=== PATIENT | female | born 1930 | race Two or more races ===

== ENCOUNTER 2019-01-29 11:41 | Inpatient (IN) | payer MEDICARE, MEDICAID ==
[~2019-01-29] VITALS: Ht 157.5 cm; Wt 53.5 kg
--- NOTE | 2019-01-29 11:45 | NUR ---
ED Nurse Note: Patient brought in by ambulance from [facility] with low sodium level of 123 and also frequent urinations. patient is alert awake x2 ambulatory with assistance, placed patient on hospital gown, bedside commode provided for the patient. pt. was BIBA from [facility] with low sodium level 123 and friquient urinations
[2019-01-29] MEDS ORDERED: ACETAMINOPHEN325 M1 ORAL (11:51)
[2019-01-29] MEDS ORDERED: ATORVASTATIN CA20 MG ORAL (11:51)
[2019-01-29] MEDS ORDERED: PROTONIX40 MG ORAL (11:51)
[2019-01-29] MEDS ORDERED: DIOVAN80 MG ORAL (11:51)
[2019-01-29] MEDS ORDERED: COLACE100 MG ORAL (11:51)
[2019-01-29] MEDS ORDERED: NAPROXEN500 M2 ORAL (11:51)
[2019-01-29] MEDS ORDERED: METOPROLOL TART25 MG ORAL (11:51)
[2019-01-29] MEDS ORDERED: ASPIRIN81 MG ORAL (11:51)
[2019-01-29 12:12] VITALS: BP 125/64
[2019-01-29 12:20] LABS: APPEARANCE,URINE CLEAR; BILIRUBIN, URINE NEGATIVE (NEGATIVE); GLUCOSE, URINE (UA) NEGATIVE (NEGATIVE); KETONES,URINE NEGATIVE (NEGATIVE); LEUKOCYTE ESTERASE ,URINE 2+ (NEGATIVE); NITRITE,URINE NEGATIVE (NEGATIVE); PH,URINE 6 (4.5-8.0); PROTEIN,URINE NEGATIVE (NEGATIVE); UROBILINOGEN,URINE NORMAL MG/DL (0.0-1.0)
[2019-01-29 12:21] LABS: COLOR,URINE YELLOW
[2019-01-29 12:31] LABS: ANION GAP 9 mmol/L (5-15); BLOOD UREA NITROGEN 21 mg/dL (7-18); CALCIUM 8.4 MG/DL (8.5-10.1); CARBON DIOXIDE 23 MMOL/L (21-32); CHLORIDE 89 MMOL/L (98-107); CREATININE 0.7 MG/DL (0.55-1.30); POTASSIUM 4.2 MMOL/L (3.5-5.1); SODIUM 121 MMOL/L (136-145)
[2019-01-29 12:37] LABS: BASOPHILS % (AUTO) 1.6 % (0.0-2.0); EOSINOPHILS % (AUTO) 1.7 % (0.0-3.0); HEMATOCRIT 34.5 % (37.0-47.0); HEMOGLOBIN 12.8 G/DL (12.0-16.0); LYMPHOCYTES % (AUTO) 22.5 % (20.0-45.0); MEAN CORPUSCULAR VOLUME 89 FL (80-99); MONOCYTES % (AUTO) 10.7 % (1.0-10.0); NEUTROPHILS % (AUTO) 63.5 % (45.0-75.0); PLATELET COUNT 260 K/UL (150-450); RED BLOOD COUNT 3.89 M/UL (4.20-5.40); RED CELL DISTRIBUTION WIDTH 11.3 % (11.6-14.8); WHITE BLOOD COUNT 7.2 K/UL (4.8-10.8)
[2019-01-29 12:42] LABS: ALANINE AMINOTRANSFERASE 20 U/L (12-78); ALBUMIN 3.2 G/DL (3.4-5.0); ALBUMIN/GLOBULIN RATIO 0.9 (1.0-2.7); ALKALINE PHOSPHATASE 92 U/L (46-116); ASPARTATE AMINO TRANSFERASE 25 U/L (15-37); BILIRUBIN,TOTAL 0.4 MG/DL (0.2-1.0)
--- NOTE | 2019-01-29 13:05 | Emergency Room Report ---
History of Present Illness General Chief Complaint: Abnormal Labs Source: EMS Present Illness HPI 88-year-old female presents ED for evaluation. Brought in by EMS from alf facility. Sent in for abnormal labs. Had reportedly low sodium. Also frequent urination. No reported fevers or chills. No nausea or vomiting. No diarrhea. No signs of distress upon arrival. No other aggravating relieving factors. Denies any other associated symptoms Allergies: Coded Allergies: PENICILLINS (Verified Allergy, Unknown, 01/29/19) Patient History Past Medical History: DM, GERD, dementia Past Surgical History: none Pertinent Family History: none Social History: Denies: smoking, alcohol use, drug use Now: No Immunizations: UTD Reviewed Nursing Documentation: PMH: Agreed; PSxH: Agreed Nursing Documentation-PMH Past Medical History: No History, Except For Hx Cardiac Problems: Yes - hyperlipidemia Hx Diabetes: Yes Hx Gastrointestinal Problems: Yes - gerd Hx Neurological Problems: Yes - nakul's Review of Systems All Other Systems: negative except mentioned in HPI Physical Exam Vital Signs Date Time Temp Pulse Resp B/P (MAP) Pulse Ox O2 Delivery O2 Flow Rate FiO2 01/29/19 11:40 73 16 136/74 (94) 96 Room Air 01/29/19 12:12 97.4 Sp02 EP Interpretation: reviewed, normal General Appearance: no apparent distress, alert, GCS 15, non-toxic Head: normocephalic, atraumatic Eyes: bilateral eye normal inspection, bilateral eye PERRL ENT: hearing grossly normal, normal pharynx, no angioedema, normal voice Neck: full range of motion, supple/symm/no masses Respiratory: chest non-tender, lungs clear, normal breath sounds, speaking full sentences Cardiovascular #1: regular rate, rhythm, no edema Cardiovascular #2: 2+ carotid (R), 2+ carotid (L), 2+ radial (R), 2+ radial (L) , 2+ dorsalis pedis (R), 2+ dorsalis pedis (L) Gastrointestinal: normal bowel sounds, non tender, soft, non-distended, no guarding, no rebound Rectal: deferred Genitourinary: normal inspection, no CVA tenderness Musculoskeletal: back normal, gait/station normal, normal range of motion, non- tender Neurologic: alert, oriented x3, responsive, motor strength/tone normal, sensory intact, speech normal Psychiatric: judgement/insight normal, memory normal, mood/affect normal, no suicidal/homicidal ideation Reflexes: 3+ bicep (R), 3+ bicep (L), 3+ tricep (R), 3+ tricep (L), 3+ knee (R) , 3+ knee (L) Lymphatic: no adenopathy Medical Decision Making Diagnostic Impression: Primary Impression: Hyponatremia Additional Impressions: UTI (urinary tract infection) Qualified Codes: N39.0 - Urinary tract infection, site not specified Alzheimer's dementia Qualified Codes: G30.9 - Alzheimer's disease, unspecified; F02.81 - Dementia in other diseases classified elsewhere with behavioral disturbance ER Course Hospital Course 88 yo F presents to ED for reported low sodium, frequent urinations Differential diagnoses include: Pneumonia, UTI, sepsis, dehydration, Clinical course Patient placed on stretcher. On equipment monitor phototypesetting with stable vitals. After initial history and physical, I ordered labs, IV fluids, EKG, chest x-ray, blood cultures, UA. Labs - Na 121, BUN/cr normal, no leukocytosis, hb/hct stable, lactic ok, UA + bacteria EKG - NSR, no acute ischemic changes interpreted by me CXR - no acute process given IVFs. given abx. Was pulling out her IV and getting combative with nursing. Given Haldol/Ativan. Case discussed with Dr Nuñez and they agreed to admit patient to their service for further care and support I feel this is a highly complex case requiring extensive working including EKG/ Rhythm strip, Xray/CT/US, Blood/urine lab work, repeat exams while in ED, and administration of strong opiates/narcotics for pain control, admission to hospital or close patient follow up. Diagnosis - hyponatremia, UTI, dementia Patient admitted to telemetry in serious condition Labs Test 01/29/19 11:58 01/29/19 12:00 Urine Color Yellow Urine Appearance Clear Urine pH 6 (4.5-8.0) Urine Specific [place] 1.015 (1.005-1.035) Urine Protein Negative (NEGATIVE) Urine Glucose (UA) Negative (NEGATIVE) Urine Ketones Negative (NEGATIVE) Urine Blood 4+ (NEGATIVE) Urine Nitrite Negative (NEGATIVE) Urine Bilirubin Negative (NEGATIVE) Urine Urobilinogen Normal MG/DL (0.0-1.0) Urine Leukocyte Esterase 2+ (NEGATIVE) White Blood Count 7.2 K/UL (4.8-10.8) Red Blood Count 3.89 M/UL (4.20-5.40) Hemoglobin 12.8 G/DL (12.0-16.0) Hematocrit 34.5 % (37.0-47.0) Mean Corpuscular Volume 89 FL (80-99) Mean Corpuscular Hemoglobin 32.8 PG (27.0-31.0) Mean Corpuscular Hemoglobin Concent 37.0 G/DL (32.0-36.0) Red Cell Distribution Width 11.3 % (11.6-14.8) Platelet Count 260 K/UL (150-450) Mean Platelet Volume 5.9 FL (6.5-10.1) Neutrophils (%) (Auto) 63.5 % (45.0-75.0) Lymphocytes (%) (Auto) 22.5 % (20.0-45.0) Monocytes (%) (Auto) 10.7 % (1.0-10.0) Eosinophils (%) (Auto) 1.7 % (0.0-3.0) Basophils (%) (Auto) 1.6 % (0.0-2.0) Sodium Level 121 MMOL/L (136-145) Potassium Level 4.2 MMOL/L (3.5-5.1) Chloride Level 89 MMOL/L (98-107) Carbon Dioxide Level 23 MMOL/L (21-32) Anion Gap 9 mmol/L (5-15) Blood Urea Nitrogen 21 mg/dL (7-18) Creatinine 0.7 MG/DL (0.55-1.30) Estimat Glomerular Filtration Rate mL/min (>60) Glucose Level 148 MG/DL (74-106) Lactic Acid Level 1.10 mmol/L (0.4-2.0) Calcium Level 8.4 MG/DL (8.5-10.1) Total Bilirubin 0.4 MG/DL (0.2-1.0) Aspartate Amino Transf (AST/SGOT) 25 U/L (15-37) Alanine Aminotransferase (ALT/SGPT) 20 U/L (12-78) Alkaline Phosphatase 92 U/L (46-116) Pro-B-Type Natriuretic Peptide 787 pg/mL (0-125) Total Protein 6.6 G/DL (6.4-8.2) Albumin 3.2 G/DL (3.4-5.0) Globulin 3.4 g/dL Albumin/Globulin Ratio 0.9 (1.0-2.7) EKG Diagnostic Results Rate: normal Rhythm: NSR ST Segments: no acute changes ASA given to the pt in ED: No Rhythm Strip Diag. Results EP Interpretation: yes Rhythm: NSR, no PVC's, no ectopy Chest X-Ray Diagnostic Results Chest X-Ray Diagnostic Results : Chest X-Ray Ordered: Yes # of Views/Limited/Complete: 1 View Indication: Other EP Interpretation: Yes Interpretation: no consolidation, no effusion, no pneumothorax, no acute cardiopulmonary disease Impression: No acute disease Electronically Signed by: Electronically signed by Kevin Monae MD Last Vital Signs Date Time Temp Pulse Resp B/P (MAP) Pulse Ox O2 Delivery O2 Flow Rate FiO2 01/29/19 12:12 97.4 75 17 125/64 98 Room Air Status: improved Disposition: ADMITTED INPATIENT Condition: Serious Referrals: NON PHYSICIAN (PCP) Kevin Monae MD Jan 29, 2019 13:05
[2019-01-29] MEDS ORDERED: LORazepam Inj 2mg/ml 1ml IV PRN (13:30)
[2019-01-29] MEDS ORDERED: Zolpidem 5mg tab ORAL PRN (13:30)
[2019-01-29] MEDS ORDERED: Miralax 17gm pkt ORAL PRN (13:30)
[2019-01-29] MEDS ORDERED: Morphine Sulfate 2mg/ml Inj(IV/IM USE ONLY) IVP PRN (13:30)
[2019-01-29] MEDS ORDERED: LORazepam Inj 2mg/ml 1ml ONE (13:38)
[2019-01-29] MEDS ORDERED: Haloperidol 5mg/ml Inj IM ONE (13:45)
[2019-01-29] MEDS ORDERED: LORazepam Inj 2mg/ml 1ml IM ONE (13:45)
--- NOTE | 2019-01-29 13:49 | Consultation ---
History of Present Illness General Date patient seen: Jan 29, 2019 Chief Complaint: Abnormal Labs Present Illness HPI 88-year-old female with hx of DM, Alzheimers dementia, longterm resident presented to ED for evaluation of abnormal labs. Had reportedly low sodium. Also frequent urination. No reported fevers or chills. No nausea or vomiting. No diarrhea. Pt's Na was 120 and she is admitted to telemetry for further management. Allergies: Coded Allergies: PENICILLINS (Verified Allergy, Unknown, 01/29/19) Medication History Scheduled Aspirin* (Aspirin*), 81 MG ORAL DAILY, (Reported) Atorvastatin Calcium* (Atorvastatin Calcium*), 20 MG ORAL BEDTIME, (Reported) Docusate Sodium* (Colace*), 100 MG ORAL TWICE A DAY, (Reported) Metoprolol Tartrate* (Metoprolol Tartrate*), 25 MG ORAL EVERY 12 HOURS, ( Reported) Naproxen* (Naproxen*), 500 MG ORAL TWICE A DAY, (Reported) Pantoprazole* (Protonix*), 40 MG ORAL DAILY, (Reported) Valsartan (Diovan), 80 MG ORAL DAILY, (Reported) Scheduled PRN Acetaminophen* (Acetaminophen 325MG Tablet*), 650 MG ORAL Q6H PRN for fever, ( Reported) Patient History Healthcare decision maker Resuscitation status Advanced Directive on File Past Medical/Surgical History Past Medical/Surgical History: (1) Diabetes mellitus (2) History of hypertension (3) Alzheimer's dementia Review of Systems All Other Systems: negative except mentioned in HPI Physical Exam General Appearance: cachetic, thin Lines, tubes and drains: peripheral HEENT: normocephalic, atraumatic Neck: non-tender, normal alignment Respiratory/Chest: chest wall non-tender, lungs clear Breasts: no masses Cardiovascular/Chest: normal peripheral pulses Abdomen: normal bowel sounds, non tender Genitourinary/Rectal: normal genital exam Skin Exam: normal pigmentation Neurologic: excel specialist II-XII grossly normal Last 24 Hour Vital Signs Date Time Temp Pulse Resp B/P (MAP) Pulse Ox O2 Delivery O2 Flow Rate FiO2 01/29/19 12:12 97.4 75 17 125/64 98 Room Air 01/29/19 11:40 73 16 136/74 (94) 96 Room Air Laboratory Tests Test 01/29/19 11:58 9/25/19 12:00 Urine Color Yellow Urine Appearance Clear Urine pH 6 (4.5-8.0) Urine Specific [place] 1.015 (1.005-1.035) Urine Protein Negative (NEGATIVE) Urine Glucose (UA) Negative (NEGATIVE) Urine Ketones Negative (NEGATIVE) Urine Blood 4+ (NEGATIVE) H Urine Nitrite Negative (NEGATIVE) Urine Bilirubin Negative (NEGATIVE) Urine Urobilinogen Normal MG/DL (0.0-1.0) Urine Leukocyte Esterase 2+ (NEGATIVE) H Urine RBC 10-15 /HPF (0 - 2) H Urine WBC 15-20 /HPF (0 - 2) H Urine Squamous Epithelial Cells Moderate /LPF (NONE/OCC) H Urine Bacteria Few /HPF (NONE) White Blood Count 7.2 K/UL (4.8-10.8) Red Blood Count 3.89 M/UL (4.20-5.40) L Hemoglobin 12.8 G/DL (12.0-16.0) Hematocrit 34.5 % (37.0-47.0) L Mean Corpuscular Volume 89 FL (80-99) Mean Corpuscular Hemoglobin 32.8 PG (27.0-31.0) H Mean Corpuscular Hemoglobin Concent 37.0 G/DL (32.0-36.0) H Red Cell Distribution Width 11.3 % (11.6-14.8) L Platelet Count 260 K/UL (150-450) Mean Platelet Volume 5.9 FL (6.5-10.1) L Neutrophils (%) (Auto) 63.5 % (45.0-75.0) Lymphocytes (%) (Auto) 22.5 % (20.0-45.0) Monocytes (%) (Auto) 10.7 % (1.0-10.0) H Eosinophils (%) (Auto) 1.7 % (0.0-3.0) Basophils (%) (Auto) 1.6 % (0.0-2.0) Sodium Level 121 MMOL/L (136-145) L Potassium Level 4.2 MMOL/L (3.5-5.1) Chloride Level 89 MMOL/L (98-107) L Carbon Dioxide Level 23 MMOL/L (21-32) Anion Gap 9 mmol/L (5-15) Blood Urea Nitrogen 21 mg/dL (7-18) H Creatinine 0.7 MG/DL (0.55-1.30) Estimat Glomerular Filtration Rate mL/min (>60) Glucose Level 148 MG/DL (74-106) H Lactic Acid Level 1.10 mmol/L (0.4-2.0) Calcium Level 8.4 MG/DL (8.5-10.1) L Total Bilirubin 0.4 MG/DL (0.2-1.0) Aspartate Amino Transf (AST/SGOT) 25 U/L (15-37) Alanine Aminotransferase (ALT/SGPT) 20 U/L (12-78) Alkaline Phosphatase 92 U/L (46-116) Pro-B-Type Natriuretic Peptide 787 pg/mL (0-125) H Total Protein 6.6 G/DL (6.4-8.2) Albumin 3.2 G/DL (3.4-5.0) L Globulin 3.4 g/dL Albumin/Globulin Ratio 0.9 (1.0-2.7) L Height (Feet): 5 Height (Inches): 2.00 Weight (Pounds): 120 Medications Current Medications Medications (Trade) Dose Ordered Sig/Tien Route PRN Reason Start Time Stop Time Status Last Admin Dose Admin Acetaminophen (Tylenol) 650 mg Q4H PRN ORAL fever 01/29/19 13:30 02/28/19 13:29 Dextrose (Dextrose 50%) 25 ml Q30M PRN IV Hypoglycemia 01/29/19 13:30 02/28/19 13:29 Dextrose (Dextrose 50%) 50 ml Q30M PRN IV Hypoglycemia 01/29/19 13:30 02/28/19 13:29 Docusate Sodium (Colace) 100 mg TWICE A DAY ORAL 01/29/19 18:00 02/28/19 17:59 Heparin Sodium (Porcine) (Heparin 5000 units/ml) 5,000 units EVERY 12 HOURS SUBQ 01/29/19 21:00 02/28/19 20:59 Insulin Aspart (NovoLOG) BEFORE MEALS AND HS SUBQ 01/29/19 16:30 02/28/19 16:29 Levofloxacin 150 ml @ 100 mls/hr NOW ONCE IVPB 01/29/19 13:30 01/29/19 14:59 01/29/19 13:39 Lorazepam (Ativan 2mg/ml 1ml) 0.5 mg Q4H PRN IV For Anxiety 01/29/19 13:30 02/05/19 13:29 Metoprolol Tartrate (Lopressor) 25 mg EVERY 12 HOURS ORAL 01/29/19 21:00 02/28/19 20:59 Morphine Sulfate (Morphine Sulfate) 1 mg Q4H PRN IVP For Pain 01/29/19 13:30 02/05/19 13:29 Ondansetron HCl (Zofran) 4 mg Q6H PRN IVP Nausea & Vomiting 01/29/19 13:30 02/28/19 13:29 Polyethylene Glycol (Miralax) 17 gm HSPRN PRN ORAL Constipation 01/29/19 13:30 02/28/19 13:29 Zolpidem Tartrate (Ambien) 5 mg HSPRN PRN ORAL Insomnia 01/29/19 13:30 02/05/19 13:29 Assessment/Plan Problem List: (1) Hyponatremia ICD Codes: E87.1 - Hypo-osmolality and hyponatremia SNOMED: 55439422 (2) Diabetes mellitus ICD Codes: E11.9 - Type 2 diabetes mellitus without complications SNOMED: 73145457 (3) Alzheimer's dementia ICD Codes: G30.9 - Alzheimer's disease, unspecified; F02.80 - Dementia in other diseases classified elsewhere without behavioral disturbance SNOMED: 57763449 Qualifiers: Qualified Codes: G30.9 - Alzheimer's disease, unspecified; F02.81 - Dementia in other diseases classified elsewhere with behavioral disturbance (4) History of hypertension ICD Codes: Z86.79 - Personal history of other diseases of the circulatory system SNOMED: 257386845 Assessment/Plan: Hyponatremia w/u NS sliding scale diabetic diet pt.ot check cortisol level Joseph Espinoza MD Jan 29, 2019 13:49
--- NOTE | 2019-01-29 14:20 | NUR ---
ED Nurse Note: patient transferred to 2E with all of her belongings on ACLS protocol. Report given to Jhon RN, endorsed all plan of care to Jhon RN, unable to do rectal swab because patient strongly refused, MRSA swabs done and sent to lab. endorsed knutson $453 counted with Jhon RN, patient declined to put it in the safe.
--- NOTE | 2019-01-29 14:20 | NUR ---
NURSE NOTES: Pt transferred from ED via gurney with the RN and certified histologic technician. Received report from Rochelle MILLER from ED. Pt Alert and oriented x2 and tuvaluan speaking only. pvc monitor applied and noted with sinus rhythm on the monitor. No c/o pain. Swabs done. Bed side railsx2 up for safety and bedside commode prepared at the bedside. IV in L hand with 22G running with levofloxacin. Call light within easy reach. Will continue to plan of care.
--- NOTE | 2019-01-29 14:30 | NUR ---
NURSE NOTES: Dr. Espinoza paged to get the orders for IV fluid therapy due to hyponatremia but no reply
[2019-01-29 16:00] VITALS: BP 122/60
[2019-01-29] MEDS: NovoLOG Insulin Flexpen SUBQ SCH ×2 (16:30→20:58)
--- NOTE | 2019-01-29 17:46 | Diagnostic Imaging Report ---
Indication: Shortness of breath Technique: One view of the chest Comparison: none Findings: Inspiration is suboptimal. There is some crowding of the vascular markings of the left lung base. Lungs and pleural spaces are otherwise grossly clear. Heart size is upper limits of normal. There are mitral annular calcifications noted Impression: No acute process
[2019-01-29] MEDS: Docusate 100mg cap ORAL SCH (18:10)
[2019-01-29 19:01] LABS: APPEARANCE,URINE CLEAR; BILIRUBIN, URINE NEGATIVE (NEGATIVE); COLOR,URINE PALE YELLOW; GLUCOSE, URINE (UA) NEGATIVE (NEGATIVE); KETONES,URINE NEGATIVE (NEGATIVE); LEUKOCYTE ESTERASE ,URINE 2+ (NEGATIVE); NITRITE,URINE NEGATIVE (NEGATIVE); PH,URINE 7 (4.5-8.0); PROTEIN,URINE NEGATIVE (NEGATIVE); UROBILINOGEN,URINE NORMAL MG/DL (0.0-1.0)
--- NOTE | 2019-01-29 19:35 | NUR ---
HAND-OFF: Report given to Renae MILLER. Pt remains stable.
--- NOTE | 2019-01-29 19:45 | NUR ---
NURSE NOTES: Received patient from PAUL Ferreira, patient in stable condition, AOx1, denies pain at this time, IV site on left hand G22, asymptomatic, intact, patent, family at bed side, bed low&locked, call light within reach, side rails upX3, will continue to monitor and reassess
[2019-01-29 20:00] VITALS: BP 142/68
[2019-01-29] MEDS: Metoprolol 25mg tab ORAL SCH (20:45)
[2019-01-29] MEDS: Heparin 5000 units/ml inj SUBQ SCH (20:46)
[2019-01-30] VITALS: BP 116/52
[2019-01-30 04:00] VITALS: BP 120/59
[2019-01-30] MEDS: NovoLOG Insulin Flexpen SUBQ SCH ×4 (06:30→21:00)
--- NOTE | 2019-01-30 07:00 | NUR ---
NURSE NOTES: Received report from Renae MILLER. Patient awake/oriented x2 solomon islander speaking only and sitting in bed. No c/o pain. No acute distress noted. IV site asymptomatic and intact. Sinus rhythm reported during last night. Bed in lowest position and locked. Side rails x2 up for safety. Will continue to plan of care
[2019-01-30 07:17] LABS: BASOPHILS % (AUTO) 1.5 % (0.0-2.0); HEMATOCRIT 35.4 % (37.0-47.0); HEMOGLOBIN 12.9 G/DL (12.0-16.0); LYMPHOCYTES % (AUTO) 28.7 % (20.0-45.0); MEAN CORPUSCULAR VOLUME 89 FL (80-99); MONOCYTES % (AUTO) 9.5 % (1.0-10.0); NEUTROPHILS % (AUTO) 59.3 % (45.0-75.0); PLATELET COUNT 265 K/UL (150-450); RED BLOOD COUNT 3.97 M/UL (4.20-5.40); RED CELL DISTRIBUTION WIDTH 11.3 % (11.6-14.8); WHITE BLOOD COUNT 6.7 K/UL (4.8-10.8)
--- NOTE | 2019-01-30 07:20 | NUR ---
HAND-OFF: Report given to JhonRN, patient in stable condition, plan of care endorsed.
--- NOTE | 2019-01-30 07:40 | NUR ---
NURSE NOTES: Report received from PAUL Ferreira. Pt. AOx 2 at this time. In RA. Denies any pain or SOB. Breakfast tray placed. R FA 24g IV flushed, SL. Pt. have knutson on a small bag that she is carry around her neck. Money counted with Jhon, $453. Informed Pt. for safety better to keep it in safe. Reluctant at this time. Will follow up. Bed on lowest position, side rails upx2, brakes engaged, alarm on. Call light within easy reach. Reminder given to Pt. for safety to use call light and get help before trying to exit bed.
--- NOTE | 2019-01-30 07:50 | NUR ---
HAND-OFF: Report given to Sara MILLER. Pt remains stable.
[2019-01-30 08:00] VITALS: BP 119/59
[2019-01-30 08:07] LABS: ALANINE AMINOTRANSFERASE 20 U/L (12-78); ALBUMIN/GLOBULIN RATIO 0.9 (1.0-2.7); ALKALINE PHOSPHATASE 74 U/L (46-116); ANION GAP 9 mmol/L (5-15); ASPARTATE AMINO TRANSFERASE 30 U/L (15-37); BILIRUBIN,TOTAL 0.6 MG/DL (0.2-1.0); BLOOD UREA NITROGEN 13 mg/dL (7-18); CALCIUM 8.8 MG/DL (8.5-10.1); CARBON DIOXIDE 24 MMOL/L (21-32); CHLORIDE 97 MMOL/L (98-107); CHOLESTEROL 162 MG/DL (< 200); CREATININE 0.7 MG/DL (0.55-1.30); HDL CHOLESTEROL 56 MG/DL (40-60); POTASSIUM 4.4 MMOL/L (3.5-5.1); SODIUM 130 MMOL/L (136-145); TRIGLYCERIDES 95 MG/DL (30-150)
[2019-01-30] MEDS: Docusate 100mg cap ORAL SCH ×2 (08:35→17:51)
[2019-01-30] MEDS: Metoprolol 25mg tab ORAL SCH ×2 (08:35→21:41)
[2019-01-30] MEDS: Heparin 5000 units/ml inj SUBQ SCH ×2 (08:37→21:43)
--- NOTE | 2019-01-30 09:10 | NUR ---
NURSE NOTES: Dr. Espinoza made aware of Na level.
--- NOTE | 2019-01-30 09:36 | NUR ---
CASE MANAGEMENT:REVIEW 88 YR OLD FEMALE BIBA FROM [facility] CC; ABNORMAL LABS PMH: ALZHEIMER'S SI: HYPONATREMIA. UTI 97.4 75 17 125/64 98% ON RA NA-121 IS: 1L NS BOLUS URINE CX BLOOD CX CXR : TO TELEMETRY DCP: RETURN TO SNF INTERQUAL CRITERIA MET
--- NOTE | 2019-01-30 11:08 | Pulmonology Progress Note ---
Assessment/Plan Problems: (1) Hyponatremia (2) Diabetes mellitus (3) Alzheimer's dementia (4) History of hypertension Assessment/Plan Hyponatremia w/u in progress continue NS sliding scale diabetic diet pt.ot check cortisol level Subjective ROS Limited/Unobtainable: No Constitutional: Reports: no symptoms HEENT: Repors: no symptoms Allergies: Coded Allergies: PENICILLINS (Verified Allergy, Unknown, 01/29/19) Objective Last 24 Hour Vital Signs Date Time Temp Pulse Resp B/P (MAP) Pulse Ox O2 Delivery O2 Flow Rate FiO2 01/30/19 08:35 63 119/59 01/30/19 08:00 63 01/30/19 08:00 97.0 63 18 119/59 (79) 95 01/30/19 04:00 66 01/30/19 04:00 97.7 70 18 120/59 (79) 97 01/30/19 00:00 97.4 64 18 116/52 (73) 97 01/30/19 00:00 63 01/29/19 21:00 Room Air 01/29/19 20:45 73 142/68 01/29/19 20:00 97.9 73 18 142/68 (92) 97 01/29/19 20:00 72 01/29/19 16:00 97.4 74 18 122/60 (80) 97 01/29/19 16:00 73 01/29/19 15:34 Room Air 01/29/19 14:33 75 01/29/19 14:20 97.4 75 17 125/64 98 Room Air 01/29/19 12:12 97.4 75 17 125/64 98 Room Air 01/29/19 11:40 73 16 136/74 (94) 96 Room Air Intake and Output 01/29/19 01/30/19 19:00 07:00 Intake Total 120 ml Balance 120 ml Intake Oral 120 ml # Voids 1 General Appearance: cachetic HEENT: normocephalic, atraumatic Respiratory/Chest: chest wall non-tender, lungs clear Breasts: no masses Cardiovascular: normal rate Abdomen: normal bowel sounds, soft, non tender, no organomegaly Neurologic/Psychiatric: synthetic plasterer II-XII grossly normal Lymphatic: no neck adenopathy Musculoskeletal: normal muscle bulk Microbiology Date/Time Source Procedure Growth Status 01/29/19 11:58 Urine,Clean Catch Urine Culture - Preliminary NO GROWTH Resulted Laboratory Tests 01/29/19 11:58: Urine Color Yellow, Urine Appearance Clear, Urine pH 6, Urine Specific [place] 1.015, Urine Protein Negative, Urine Glucose (UA) Negative, Urine Ketones Negative, Urine Blood 4+H, Urine Nitrite Negative, Urine Bilirubin Negative, Urine Urobilinogen Normal, Urine Leukocyte Esterase 2+H, Urine RBC 10-15H, Urine WBC 15-20H, Urine Squamous Epithelial Cells ModerateH, Urine Bacteria Few 01/29/19 12:00: White Blood Count 7.2, Red Blood Count 3.89L, Hemoglobin 12.8, Hematocrit 34.5L , Mean Corpuscular Volume 89, Mean Corpuscular Hemoglobin 32.8H, Mean Corpuscular Hemoglobin Concent 37.0H, Red Cell Distribution Width 11.3L, Platelet Count 260, Mean Platelet Volume 5.9L, Neutrophils (%) (Auto) 63.5, Lymphocytes (%) (Auto) 22.5, Monocytes (%) (Auto) 10.7H, Eosinophils (%) (Auto) 1.7, Basophils (%) (Auto) 1.6, Sodium Level 121L, Potassium Level 4.2, Chloride Level 89L, Carbon Dioxide Level 23, Anion Gap 9, Blood Urea Nitrogen 21H, Creatinine 0.7, Estimat Glomerular Filtration Rate , Glucose Level 148H, Lactic Acid Level 1.10, Calcium Level 8.4L, Total Bilirubin 0.4, Aspartate Amino Transf (AST/SGOT) 25, Alanine Aminotransferase (ALT/SGPT) 20, Alkaline Phosphatase 92, Pro-B-Type Natriuretic Peptide 787H, Total Protein 6.6, Albumin 3.2L, Globulin 3.4, Albumin/Globulin Ratio 0.9L 01/29/19 14:55: Osmolality 262L, Uric Acid 2.1L, Thyroid Stimulating Hormone (TSH) 5.847H, Free Thyroxine 1.02, Free Triiodothyronine 2.0L, Cortisol 7.2 01/29/19 18:20: Urine Color Pale yellow, Urine Appearance Clear, Urine pH 7, Urine Specific [place] 1.005, Urine Protein Negative, Urine Glucose (UA) Negative, Urine Ketones Negative, Urine Blood 2+H, Urine Nitrite Negative, Urine Bilirubin Negative, Urine Urobilinogen Normal, Urine Leukocyte Esterase 2+H, Urine RBC 2- 4H, Urine WBC 5-10H, Urine Squamous Epithelial Cells Few, Urine Bacteria Occasional, Urine Osmolality 327L, Urine Random Sodium 75 01/30/19 06:14: White Blood Count 6.7, Red Blood Count 3.97L, Hemoglobin 12.9, Hematocrit 35.4L , Mean Corpuscular Volume 89, Mean Corpuscular Hemoglobin 32.5H, Mean Corpuscular Hemoglobin Concent 36.4H, Red Cell Distribution Width 11.3L, Platelet Count 265, Mean Platelet Volume 5.7L, Neutrophils (%) (Auto) 59.3, Lymphocytes (%) (Auto) 28.7, Monocytes (%) (Auto) 9.5, Eosinophils (%) (Auto) 1.0, Basophils (%) (Auto) 1.5, Sodium Level 130L, Potassium Level 4.4, Chloride Level 97L, Carbon Dioxide Level 24, Anion Gap 9, Blood Urea Nitrogen 13, Creatinine 0.7, Estimat Glomerular Filtration Rate , Glucose Level 89, Calcium Level 8.8, Total Bilirubin 0.6, Aspartate Amino Transf (AST/SGOT) 30, Alanine Aminotransferase (ALT/SGPT) 20, Alkaline Phosphatase 74, Total Protein 6.4, Albumin 3.0L, Globulin 3.4, Albumin/Globulin Ratio 0.9L, Triglycerides Level 95 , Cholesterol Level 162, LDL Cholesterol 92, HDL Cholesterol 56, Cholesterol/ HDL Ratio 2.9L Current Medications Medications (Trade) Dose Ordered Sig/Tien Route PRN Reason Start Time Stop Time Status Last Admin Dose Admin Acetaminophen (Tylenol) 650 mg Q4H PRN ORAL fever 01/29/19 13:30 02/28/19 13:29 Dextrose (Dextrose 50%) 25 ml Q30M PRN IV Hypoglycemia 01/29/19 13:30 02/28/19 13:29 Dextrose (Dextrose 50%) 50 ml Q30M PRN IV Hypoglycemia 01/29/19 13:30 02/28/19 13:29 Docusate Sodium (Colace) 100 mg TWICE A DAY ORAL 01/29/19 18:00 02/28/19 17:59 01/30/19 08:35 Heparin Sodium (Porcine) (Heparin 5000 units/ml) 5,000 units EVERY 12 HOURS SUBQ 01/29/19 21:00 02/28/19 20:59 01/30/19 08:37 Insulin Aspart (NovoLOG) BEFORE MEALS AND HS SUBQ 01/29/19 16:30 02/28/19 16:29 01/29/19 20:58 Lorazepam (Ativan 2mg/ml 1ml) 0.5 mg Q4H PRN IV For Anxiety 01/29/19 13:30 02/05/19 13:29 Metoprolol Tartrate (Lopressor) 25 mg EVERY 12 HOURS ORAL 01/29/19 21:00 02/28/19 20:59 01/30/19 08:35 Morphine Sulfate (Morphine Sulfate) 1 mg Q4H PRN IVP For Pain 01/29/19 13:30 02/05/19 13:29 Ondansetron HCl (Zofran) 4 mg Q6H PRN IVP Nausea & Vomiting 01/29/19 13:30 02/28/19 13:29 Polyethylene Glycol (Miralax) 17 gm HSPRN PRN ORAL Constipation 01/29/19 13:30 02/28/19 13:29 Zolpidem Tartrate (Ambien) 5 mg HSPRN PRN ORAL Insomnia 01/29/19 13:30 02/05/19 13:29 Joseph Espinoza MD Jan 30, 2019 11:08
[2019-01-30 12:00] VITALS: BP 124/59
[2019-01-30 16:00] VITALS: BP 130/68
--- NOTE | 2019-01-30 16:49 | History & Physical ---
History and Physical History & Physicial Dictated for Int Med-DR Nuñez no. [id number]. Angelito Richard MD Jan 30, 2019 16:49
--- NOTE | 2019-01-30 19:28 | NUR ---
NURSE NOTES: Received patient from PAUL Ruiz, patient in stable condition, AOx1, denies pain at this time, IV site on R [id number], asymptomatic, intact, patent, family at bed side, bed low&locked, call light within reach, side rails upX3, will continue to monitor and reassess
--- NOTE | 2019-01-30 19:28 | NUR ---
HAND-OFF: Report given to PAUL Dias. Pt. in stable condition. Plan of care endorsed.
[2019-01-30 20:00] VITALS: BP 141/72
--- NOTE | 2019-01-30 20:00 | History and Physical Report ---
DATE OF ADMISSION: 01/29/2019 CHIEF COMPLAINT: The patient is an 88-year-old female, who presents with chief complaint of abnormal laboratories. HISTORY OF PRESENT ILLNESS: The patient has a history of hyponatremia. The patient is a resident of [facility]. The patient was transferred to [facility] for "low sodium." Upon arrival at [facility], the patient was found to have sodium level of 121. 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 REVIEW OF SYSTEMS: Unable to assess secondary to the patient's mental status. PAST MEDICAL HISTORY: Significant for: 1. Type 2 diabetes. 2. Degenerative disc disease of the lumbar spine. 3. Hypercholesterolemia. 4. Hypertension. 5. Alzheimer's dementia. 6. Gastroesophageal reflux disease. 7. History of hyponatremia. PAST SURGICAL HISTORY: Denies. CURRENT MEDICATIONS: 1. Aspirin 81 mg one tablet p.o. daily. 2. Atorvastatin 20 mg p.o. daily. 3. Metoprolol 25 mg p.o. daily. 4. Naproxen 500 mg p.o. twice daily. 5. Protonix 40 mg p.o. daily. 6. Tylenol 325 mg 2 tablets p.o. q.6 hours p.r.n. 7. Valsartan 80 mg p.o. twice daily. ALLERGIES: Penicillin. SOCIAL HISTORY: The patient is single. The patient is a resident of [facility]. The patient denies tobacco or alcohol use. PHYSICAL EXAMINATION: VITAL SIGNS: Temperature 97.4, respirations 18, pulse 74, and blood pressure 122/60. GENERAL: The patient is well-developed and well-nourished thin-appearing female, in no apparent distress. HEENT: Eyes, pupils are equal and responsive to light and accommodation. Extraocular movements are intact. NECK: Supple without lymphadenopathy. CHEST: Lungs are clear to auscultation bilaterally without wheezes or rales. CARDIOVASCULAR: Regular rhythm and rate. S1 and S2 are normal without murmurs, rubs, or gallops. ABDOMEN: Soft, nontender, and nondistended. Positive bowel sounds. No evidence of hepatosplenomegaly. Currently, no rebound or guarding noted. EXTREMITIES: Negative for clubbing, cyanosis, or edema. RECTAL/GENITAL: Not performed. NEUROLOGIC: Cranial nerves II through XII are grossly intact without focal deficits. Motor strength is 5/5 bilaterally. Deep tendon reflexes are 2+ plantar. LABORATORY STUDIES: WBC 7.2, hemoglobin 12.8, hematocrit 34.5, and platelets 260,000. Sodium 121, potassium 4.2, chloride 89, CO2 23, BUN 21, creatinine 0.7, and glucose 148. BNP elevated at 787. Chest x-ray was reported as no acute disease. ASSESSMENT: This is an 88-year-old female. 1. Hyponatremia. 2. Diabetes type 2. 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 4. Hypercholesterolemia. 5. Hypertension. 6. Alzheimer's dementia. 7. Gastroesophageal reflux disease. TREATMENT: 1. Hyponatremia. The patient is currently receiving intravenous fluids with normal saline. Sodium will be slowly corrected. Differential includes SIADH. A Nephrology consultation has been obtained with Dr. Cobian. We will follow recommendations of Nephrology. 2. Diabetes. The patient was not on insulin in the long term facility. 3. Hypercholesterolemia. Continue atorvastatin as above. 4. Hypertension. Continue metoprolol and valsartan as above. 5. Alzheimer's dementia. 6. Gastroesophageal reflux disease. Continue Protonix as above. Angelito Richard M.D. DR: BRUNA JOB#: [id number] CC:
[2019-01-31] VITALS: BP 142/63
[2019-01-31 04:00] VITALS: BP 125/47
[2019-01-31] MEDS: NovoLOG Insulin Flexpen SUBQ SCH ×5 (06:49→20:21)
--- NOTE | 2019-01-31 07:13 | NUR ---
HAND-OFF: Report given to PAUL Ruiz,patient in stable condition,plan of care endorsed.
[2019-01-31 07:18] LABS: BASOPHILS % (AUTO) 1.9 % (0.0-2.0); EOSINOPHILS % (AUTO) 1.6 % (0.0-3.0); HEMATOCRIT 35.2 % (37.0-47.0); HEMOGLOBIN 12.7 G/DL (12.0-16.0); LYMPHOCYTES % (AUTO) 28.5 % (20.0-45.0); MEAN CORPUSCULAR VOLUME 91 FL (80-99); MONOCYTES % (AUTO) 12.1 % (1.0-10.0); PLATELET COUNT 244 K/UL (150-450); RED BLOOD COUNT 3.88 M/UL (4.20-5.40); RED CELL DISTRIBUTION WIDTH 10.5 % (11.6-14.8); WHITE BLOOD COUNT 6.8 K/UL (4.8-10.8)
--- NOTE | 2019-01-31 07:20 | NUR ---
NURSE NOTES: Report received from PAUL Dias. Assisted Pt.to the bedside commode. Pt. in RA Addendum: 01/31/19 at 0805 by Sara Romo RN Report received from PAUL Dias. Assisted to bedside commode. AOx2. In RA. Denies SOB or pain. IV site intact. Bed on lowest position, side rails upx2, brakes engaged. Call light left within easy reach.
[2019-01-31 07:30] LABS: ANION GAP 7 mmol/L (5-15); BLOOD UREA NITROGEN 18 mg/dL (7-18); CALCIUM 8.3 MG/DL (8.5-10.1); CARBON DIOXIDE 24 MMOL/L (21-32); CHLORIDE 95 MMOL/L (98-107); CREATININE 0.7 MG/DL (0.55-1.30); POTASSIUM 3.6 MMOL/L (3.5-5.1); SODIUM 126 MMOL/L (136-145)
[2019-01-31 08:00] VITALS: BP 130/56
[2019-01-31] MEDS: Heparin 5000 units/ml inj SUBQ SCH ×2 (09:00→20:23)
[2019-01-31] MEDS: Docusate 100mg cap ORAL SCH ×2 (09:14→17:23)
[2019-01-31] MEDS: Metoprolol 25mg tab ORAL SCH ×2 (09:14→20:23)
--- NOTE | 2019-01-31 11:02 | Pulmonology Progress Note ---
Assessment/Plan Problems: (1) Hyponatremia (2) Diabetes mellitus (3) Alzheimer's dementia (4) History of hypertension Assessment/Plan Hyponatremia w/u in progress continue NS sliding scale diabetic diet pt.ot check cortisol level add NaCl tables, according to Uptodate initial dosing is 9 gm a day. will start at lower dose and check Na daily Subjective ROS Limited/Unobtainable: No Constitutional: Reports: no symptoms HEENT: Repors: no symptoms Respiratory: Reports: no symptoms Allergies: Coded Allergies: PENICILLINS (Verified Allergy, Unknown, 01/29/19) Objective Last 24 Hour Vital Signs Date Time Temp Pulse Resp B/P (MAP) Pulse Ox O2 Delivery O2 Flow Rate FiO2 01/31/19 09:14 90 130/56 01/31/19 08:00 90 01/31/19 08:00 98.4 78 18 130/56 (80) 97 01/31/19 04:00 78 01/31/19 04:00 98.6 66 16 125/47 (73) 96 01/31/19 00:00 98.5 73 18 142/63 (89) 96 01/31/19 00:00 83 01/30/19 21:41 78 141/72 01/30/19 21:00 Room Air 01/30/19 20:00 98.4 77 18 141/72 (95) 99 01/30/19 20:00 83 01/30/19 16:00 98.9 76 18 130/68 (88) 99 01/30/19 16:00 76 01/30/19 12:00 98.0 73 18 124/59 (80) 98 01/30/19 12:00 64 Intake and Output 01/30/19 01/31/19 18:59 06:59 Intake Total 120 ml 200 ml Balance 120 ml 200 ml Intake Oral 120 ml 200 ml # Voids 1 3 General Appearance: WD/WN, cachetic HEENT: normocephalic, atraumatic Breasts: no masses Cardiovascular: normal peripheral pulses Abdomen: normal bowel sounds, soft, non tender Skin: no rash Neurologic/Psychiatric: radiagraph operator II-XII grossly normal Lymphatic: no neck adenopathy Microbiology Date/Time Source Procedure Growth Status 01/29/19 12:10 Blood Blood Culture - Preliminary NO GROWTH AFTER 24 HOURS Resulted 01/29/19 11:58 Blood Blood Culture - Preliminary NO GROWTH AFTER 24 HOURS Resulted 01/29/19 15:00 Nasal Nares MRSA Culture - Final NO METHICILLIN RESISTANT STAPH AUREUS... Complete 01/29/19 11:58 Urine,Clean Catch Urine Culture - Final Mixed Gram Positive Organism Complete 01/29/19 18:20 Rectum - Final NO CARBAPENEM-RESISTANT ENTEROBACTERI... Complete 01/29/19 18:20 Rectum VRE Culture - Final NO VANCOMYCIN RESISTANT ENTEROCOCCUS ... Complete Laboratory Tests 01/31/19 06:05: White Blood Count 6.8, Red Blood Count 3.88L, Hemoglobin 12.7, Hematocrit 35.2L , Mean Corpuscular Volume 91, Mean Corpuscular Hemoglobin 32.8H, Mean Corpuscular Hemoglobin Concent 36.1H, Red Cell Distribution Width 10.5L, Platelet Count 244, Mean Platelet Volume 6.1L, Neutrophils (%) (Auto) 56.0, Lymphocytes (%) (Auto) 28.5, Monocytes (%) (Auto) 12.1H, Eosinophils (%) (Auto) 1.6, Basophils (%) (Auto) 1.9, Sodium Level 126L, Potassium Level 3.6, Chloride Level 95L, Carbon Dioxide Level 24, Anion Gap 7, Blood Urea Nitrogen 18, Creatinine 0.7, Estimat Glomerular Filtration Rate , Glucose Level 91, Calcium Level 8.3L Current Medications Medications (Trade) Dose Ordered Sig/Tien Route PRN Reason Start Time Stop Time Status Last Admin Dose Admin Acetaminophen (Tylenol) 650 mg Q4H PRN ORAL fever 01/29/19 13:30 02/28/19 13:29 Dextrose (Dextrose 50%) 25 ml Q30M PRN IV Hypoglycemia 01/29/19 13:30 02/28/19 13:29 Dextrose (Dextrose 50%) 50 ml Q30M PRN IV Hypoglycemia 01/29/19 13:30 02/28/19 13:29 Docusate Sodium (Colace) 100 mg TWICE A DAY ORAL 01/29/19 18:00 02/28/19 17:59 01/31/19 09:14 Heparin Sodium (Porcine) (Heparin 5000 units/ml) 5,000 units EVERY 12 HOURS SUBQ 01/29/19 21:00 02/28/19 20:59 01/30/19 21:43 Insulin Aspart (NovoLOG) BEFORE MEALS AND HS SUBQ 01/29/19 16:30 02/28/19 16:29 01/31/19 06:49 Lorazepam (Ativan 2mg/ml 1ml) 0.5 mg Q4H PRN IV For Anxiety 01/29/19 13:30 02/05/19 13:29 Metoprolol Tartrate (Lopressor) 25 mg EVERY 12 HOURS ORAL 01/29/19 21:00 02/28/19 20:59 01/31/19 09:14 Morphine Sulfate (Morphine Sulfate) 1 mg Q4H PRN IVP For Pain 01/29/19 13:30 02/05/19 13:29 Ondansetron HCl (Zofran) 4 mg Q6H PRN IVP Nausea & Vomiting 01/29/19 13:30 02/28/19 13:29 Polyethylene Glycol (Miralax) 17 gm HSPRN PRN ORAL Constipation 01/29/19 13:30 02/28/19 13:29 Zolpidem Tartrate (Ambien) 5 mg HSPRN PRN ORAL Insomnia 01/29/19 13:30 02/05/19 13:29 Joseph Espinoza MD Jan 31, 2019 11:02
--- NOTE | 2019-01-31 11:14 | NUR ---
CASE MANAGEMENT:REVIEW 01/31/19 SI: ELECTROLYTE IMBALANCE HYPONATREMIA. DM 98.4 78 90 18 130/56 97% ON RA NA-126 IS: LOPRESSOR PO Q12 HEPARIN SQ Q12 SS INSULIN AC+HS : TELEMETRY STATUS DCP: FROM [facility] PLAN: DOWNGRADE TO MED/SURG CORRECT SODIUM
[2019-01-31] MEDS: Sodium Chloride 1gm Tab ORAL SCH ×3 (11:44→17:23)
--- NOTE | 2019-01-31 11:50 | Internal Med Progress Note ---
Subjective Physician Name Eyad Nuñez Attending Physician Eyad Nuñez MD Current Medications Medications (Trade) Dose Ordered Sig/Tien Route PRN Reason Start Time Stop Time Status Last Admin Dose Admin Acetaminophen (Tylenol) 650 mg Q4H PRN ORAL fever 01/29/19 13:30 02/28/19 13:29 Dextrose (Dextrose 50%) 25 ml Q30M PRN IV Hypoglycemia 01/29/19 13:30 02/28/19 13:29 Dextrose (Dextrose 50%) 50 ml Q30M PRN IV Hypoglycemia 01/29/19 13:30 02/28/19 13:29 Docusate Sodium (Colace) 100 mg TWICE A DAY ORAL 01/29/19 18:00 02/28/19 17:59 01/31/19 09:14 Heparin Sodium (Porcine) (Heparin 5000 units/ml) 5,000 units EVERY 12 HOURS SUBQ 01/29/19 21:00 02/28/19 20:59 01/30/19 21:43 Insulin Aspart (NovoLOG) BEFORE MEALS AND HS SUBQ 01/29/19 16:30 02/28/19 16:29 01/31/19 06:49 Lorazepam (Ativan 2mg/ml 1ml) 0.5 mg Q4H PRN IV For Anxiety 01/29/19 13:30 02/05/19 13:29 Metoprolol Tartrate (Lopressor) 25 mg EVERY 12 HOURS ORAL 01/29/19 21:00 02/28/19 20:59 01/31/19 09:14 Morphine Sulfate (Morphine Sulfate) 1 mg Q4H PRN IVP For Pain 01/29/19 13:30 02/05/19 13:29 Ondansetron HCl (Zofran) 4 mg Q6H PRN IVP Nausea & Vomiting 01/29/19 13:30 02/28/19 13:29 Polyethylene Glycol (Miralax) 17 gm HSPRN PRN ORAL Constipation 01/29/19 13:30 02/28/19 13:29 Sodium Chloride (NaCl) 1 gm THREE TIMES A DAY ORAL 01/31/19 11:30 03/02/19 11:29 Zolpidem Tartrate (Ambien) 5 mg HSPRN PRN ORAL Insomnia 01/29/19 13:30 02/05/19 13:29 Allergies: Coded Allergies: PENICILLINS (Verified Allergy, Unknown, 9/25/19) Subjective awake, alert, responsive, NAD, No CP or SOB Objective Last Vital Signs Date Time Temp Pulse Resp B/P (MAP) Pulse Ox O2 Delivery O2 Flow Rate FiO2 01/31/19 09:14 90 130/56 01/31/19 09:00 Room Air 01/31/19 08:00 98.4 18 97 Laboratory Tests Test 01/31/19 06:05 White Blood Count 6.8 K/UL (4.8-10.8) Red Blood Count 3.88 M/UL (4.20-5.40) L Hemoglobin 12.7 G/DL (12.0-16.0) Hematocrit 35.2 % (37.0-47.0) L Mean Corpuscular Volume 91 FL (80-99) Mean Corpuscular Hemoglobin 32.8 PG (27.0-31.0) H Mean Corpuscular Hemoglobin Concent 36.1 G/DL (32.0-36.0) H Red Cell Distribution Width 10.5 % (11.6-14.8) L Platelet Count 244 K/UL (150-450) Mean Platelet Volume 6.1 FL (6.5-10.1) L Neutrophils (%) (Auto) 56.0 % (45.0-75.0) Lymphocytes (%) (Auto) 28.5 % (20.0-45.0) Monocytes (%) (Auto) 12.1 % (1.0-10.0) H Eosinophils (%) (Auto) 1.6 % (0.0-3.0) Basophils (%) (Auto) 1.9 % (0.0-2.0) Sodium Level 126 MMOL/L (136-145) L Potassium Level 3.6 MMOL/L (3.5-5.1) Chloride Level 95 MMOL/L (98-107) L Carbon Dioxide Level 24 MMOL/L (21-32) Anion Gap 7 mmol/L (5-15) Blood Urea Nitrogen 18 mg/dL (7-18) Creatinine 0.7 MG/DL (0.55-1.30) Estimat Glomerular Filtration Rate mL/min (>60) Glucose Level 91 MG/DL (74-106) Calcium Level 8.3 MG/DL (8.5-10.1) L Microbiology Date/Time Source Procedure Growth Status 01/29/19 12:10 Blood Blood Culture - Preliminary NO GROWTH AFTER 24 HOURS Resulted 01/29/19 11:58 Blood Blood Culture - Preliminary NO GROWTH AFTER 24 HOURS Resulted 01/29/19 15:00 Nasal Nares MRSA Culture - Final NO METHICILLIN RESISTANT STAPH AUREUS... Complete 01/29/19 11:58 Urine,Clean Catch Urine Culture - Final Mixed Gram Positive Organism Complete 01/29/19 18:20 Rectum - Final NO CARBAPENEM-RESISTANT ENTEROBACTERI... Complete 01/29/19 18:20 Rectum VRE Culture - Final NO VANCOMYCIN RESISTANT ENTEROCOCCUS ... Complete Intake and Output 01/30/19 01/31/19 18:59 06:59 Intake Total 120 ml 200 ml Balance 120 ml 200 ml Intake Oral 120 ml 200 ml # Voids 1 3 Objective General: No acute distress, awake and alert HEENT: NCAT, sclera anicteric, PERRL, EOMI. Neck: Supple, no significant jugular venous distention, Lungs: Good inspiratory effort, fair air entry no Wheeze or Rales. Heart: Regular rate and rhythm, normal S1/S2, no murmurs/gallops Abdomen: soft, nontender, nondistended. Normoactive bowel sounds. / Rectal: Refused and deferred. Extremities: No Cyanosis , clubbing or edema. Neuro: A&O x 3, Able to move all extremities Skin: warm, no rash. Psych: Normal mood and affect Assessment/Plan Assessment/Plan 1. Hyponatremia. 2. Diabetes type 2. 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 4. Hypercholesterolemia. 5. Hypertension. 6. Alzheimer's dementia. 7. Gastroesophageal reflux disease. TREATMENT: 1. Hyponatremia. The patient is currently receiving intravenous fluids with normal saline. Sodium will be slowly corrected. Differential includes SIADH. A Nephrology consultation has been obtained with Dr. Cobian. We will follow recommendations of Nephrology. 2. Diabetes. The patient [facility] not on insulin in the [facility] facility. 3. Hypercholesterolemia. Continue atorvastatin as above. 4. Hypertension. Continue metoprolol and valsartan as above. 5. Alzheimer's dementia. 6. Gastroesophageal reflux disease. Continue Protonix as above. DC planning to SNF soon, Eyad Nuñez MD Jan 31, 2019 11:50
[2019-01-31] MEDS ORDERED: SODIUM CHLORIDE1 GM ORAL (11:51)
[2019-01-31 12:00] VITALS: BP 143/90
--- NOTE | 2019-01-31 15:20 | NUR ---
NURSE NOTES: Called SNF to give a report, they're not expecting Pt. today.
[2019-01-31 16:00] VITALS: BP 134/68
--- NOTE | 2019-01-31 16:20 | NUR ---
DISCHARGE PLANNEDPLEASE READ PATIENT WILL RETURN TO SNF ON Sunday02/01/19 [facility] ROOM [address] SKILLED T: [phone] FOR NURSE TO NURSE REPORT [facility] HAS BEEN ARRANGED FOR 1000 VENDING TECHNICIAN PATIENT IS IN AGREEMENT WITH DISCHARGE PLAN
--- NOTE | 2019-01-31 19:28 | NUR ---
HAND-OFF: Report given to PAUL Almonte. Pt. in stable condition.
--- NOTE | 2019-01-31 19:50 | NUR ---
NURSE NOTES: Pt received by PAUL Ruiz. Pt is alert and oriented x 2-3. She is insisting on trying to get up and use the bedside commode and does not want assistance. She said she is leaving tomorrow and was told earlier she can have a walker. Informed patient to call for assistance. Placed pt in room closest to the nursing station and will closely monitor. Also charting right next to patient's room to monitor even more closely. Pt just used restroom and is now sitting up in her bed. Bed locked in lowest position, side rails x3, call light in reach, bed alarm on.
--- NOTE | 2019-01-31 19:52 | NUR ---
NURSE NOTES: Pt removed and refuses to have equipment monitor phototypesetting on. Is resistant to care. Also noticed there is no IV on this patient. Pt refuses to allow me to reinsert an IV.
--- NOTE | 2019-01-31 19:59 | NUR ---
NURSE NOTES: Pt agreed to stay in bed and call for assistance as needed.
[2019-01-31 20:00] VITALS: BP 150/71
--- NOTE | 2019-01-31 21:38 | NUR ---
NURSE NOTES: Pt is resting at this time. Bed alarm on and in bed, locked, lowest position. residential real estate assistant is sitting at bedside.
[2019-02-01] MEDS: NovoLOG Insulin Flexpen SUBQ SCH ×4 (06:30→21:00)
--- NOTE | 2019-02-01 07:15 | NUR ---
NURSE NOTES: Nurse report given by PAUL Almonte. Patient's sleeping in bed, semi michel, no s/s of distress or SOB. Bed low and locked, call light within reach, side rails x2, safety precaution is on. Bed side commode is at bedside. No IV site present, No quality assurance monitor chassis applied, patient removed it at night and refused to have another IV access and quality assurance monitor chassis according to MD Suzy is aware. Will continue to monitor.
--- NOTE | 2019-02-01 07:27 | NUR ---
HAND-OFF: Report given to PAUL Flores.
--- NOTE | 2019-02-01 07:48 | Pulmonology Progress Note ---
Assessment/Plan Assessment/Plan ASSESSMENT Hyponatremia Diabetes mellitus Hypertension Alzheimer dementia Hypothyroidism PLAN OF CARE Hyponatremia work-up noted no effect in Na with IV fluid possibly SIADH will dc IVF fluid restriction, 250 cc of 3% normal saline cortisol level ok, no evidecne of adrenal insufficiency hypo Na possibly due to SIADH and hypothymism start levothyroxine-TSH high, free T3 low BP management with BB BS management with SSI DVT prophylaxis BCX negative ; UCX mixed GPO, supportive care bowel regimen case discussed and evaluated by supervising physician Subjective Allergies: Coded Allergies: PENICILLINS (Verified Allergy, Unknown, 01/29/19) Subjective Na still 126 this am removed IV line earlier no CP no SOB pulse ox stable on RA Objective Last 24 Hour Vital Signs Date Time Temp Pulse Resp B/P (MAP) Pulse Ox O2 Delivery O2 Flow Rate FiO2 02/01/19 04:00 97.6 80 18 02/01/19 00:00 97.7 18 98 01/31/19 21:00 Room Air 01/31/19 20:23 82 150/71 01/31/19 20:00 96.0 82 19 150/71 (97) 94 01/31/19 16:00 98.0 78 18 134/68 (90) 97 01/31/19 12:00 98.2 71 18 143/90 (107) 97 01/31/19 09:14 90 130/56 01/31/19 09:00 Room Air 01/31/19 08:00 90 01/31/19 08:00 98.4 78 18 130/56 (80) 97 Intake and Output 01/31/19 02/01/19 19:00 07:00 Intake Total 200 ml Balance 200 ml Intake Oral 200 ml # Voids 2 5 General Appearance: other - frail elderly female in NAD HEENT: normocephalic, atraumatic, anicteric, mucous membranes moist Respiratory/Chest: lungs clear - with moderate air exchange, no respiratory distress, no accessory muscle use Cardiovascular: normal rate, regular rhythm Abdomen: soft, non tender, non distended Extremities: no edema Neurologic/Psychiatric: abnormal gait, alert - responsive , other - moving all extremities Musculoskeletal: atrophy - BLE Microbiology Date/Time Source Procedure Growth Status 01/29/19 12:10 Blood Blood Culture - Preliminary NO GROWTH AFTER 24 HOURS Resulted 01/29/19 11:58 Blood Blood Culture - Preliminary NO GROWTH AFTER 24 HOURS Resulted 01/29/19 15:00 Nasal Nares MRSA Culture - Final NO METHICILLIN RESISTANT STAPH AUREUS... Complete 01/29/19 11:58 Urine,Clean Catch Urine Culture - Final Mixed Gram Positive Organism Complete 01/29/19 18:20 Rectum - Final NO CARBAPENEM-RESISTANT ENTEROBACTERI... Complete 01/29/19 18:20 Rectum VRE Culture - Final NO VANCOMYCIN RESISTANT ENTEROCOCCUS ... Complete Laboratory Tests 02/01/19 06:25: White Blood Count [Pending], Red Blood Count [Pending], Hemoglobin [Pending], Hematocrit [Pending], Mean Corpuscular Volume [Pending], Mean Corpuscular Hemoglobin [Pending], Mean Corpuscular Hemoglobin Concent [Pending], Red Cell Distribution Width [Pending], Platelet Count [Pending], Mean Platelet Volume [ Pending], Neutrophils (%) (Auto) [Pending], Lymphocytes (%) (Auto) [Pending], Monocytes (%) (Auto) [Pending], Eosinophils (%) (Auto) [Pending], Basophils (%) (Auto) [Pending], Sodium Level [Pending], Potassium Level [Pending], Chloride Level [Pending], Carbon Dioxide Level [Pending], Blood Urea Nitrogen [Pending], Creatinine [Pending], Estimat Glomerular Filtration Rate [Pending], Glucose Level [Pending], Calcium Level [Pending], Phosphorus Level [Pending], Magnesium Level [Pending], Total Bilirubin [Pending], Aspartate Amino Transf (AST/SGOT) [ Pending], Alanine Aminotransferase (ALT/SGPT) [Pending], Alkaline Phosphatase [ Pending], Total Protein [Pending], Albumin [Pending], Globulin [Pending] Current Medications Medications (Trade) Dose Ordered Sig/Tien Route PRN Reason Start Time Stop Time Status Last Admin Dose Admin Acetaminophen (Tylenol) 650 mg Q4H PRN ORAL fever 01/29/19 13:30 02/28/19 13:29 Dextrose (Dextrose 50%) 25 ml Q30M PRN IV Hypoglycemia 01/29/19 13:30 02/28/19 13:29 Dextrose (Dextrose 50%) 50 ml Q30M PRN IV Hypoglycemia 01/29/19 13:30 02/28/19 13:29 Docusate Sodium (Colace) 100 mg TWICE A DAY ORAL 01/29/19 18:00 02/28/19 17:59 01/31/19 17:23 Heparin Sodium (Porcine) (Heparin 5000 units/ml) 5,000 units EVERY 12 HOURS SUBQ 01/29/19 21:00 02/28/19 20:59 01/30/19 21:43 Insulin Aspart (NovoLOG) BEFORE MEALS AND HS SUBQ 01/29/19 16:30 02/28/19 16:29 01/31/19 06:49 Lorazepam (Ativan 2mg/ml 1ml) 0.5 mg Q4H PRN IV For Anxiety 01/29/19 13:30 02/05/19 13:29 Metoprolol Tartrate (Lopressor) 25 mg EVERY 12 HOURS ORAL 01/29/19 21:00 02/28/19 20:59 01/31/19 20:23 Morphine Sulfate (Morphine Sulfate) 1 mg Q4H PRN IVP For Pain 01/29/19 13:30 02/05/19 13:29 Ondansetron HCl (Zofran) 4 mg Q6H PRN IVP Nausea & Vomiting 01/29/19 13:30 02/28/19 13:29 Polyethylene Glycol (Miralax) 17 gm HSPRN PRN ORAL Constipation 01/29/19 13:30 02/28/19 13:29 Sodium Chloride (NaCl) 1 gm THREE TIMES A DAY ORAL 01/31/19 11:30 03/02/19 11:29 01/31/19 17:23 Zolpidem Tartrate (Ambien) 5 mg HSPRN PRN ORAL Insomnia 01/29/19 13:30 02/05/19 13:29 01/31/19 20:25 Aide Rodriges NOISE TESTER Feb 01, 2019 07:48
[2019-02-01 07:51] LABS: ALANINE AMINOTRANSFERASE 23 U/L (12-78); ALBUMIN/GLOBULIN RATIO 0.9 (1.0-2.7); ALKALINE PHOSPHATASE 70 U/L (46-116); ANION GAP 8 mmol/L (5-15); ASPARTATE AMINO TRANSFERASE 32 U/L (15-37); BILIRUBIN,TOTAL 0.8 MG/DL (0.2-1.0); BLOOD UREA NITROGEN 15 mg/dL (7-18); CALCIUM 8.3 MG/DL (8.5-10.1); CARBON DIOXIDE 24 MMOL/L (21-32); CHLORIDE 94 MMOL/L (98-107); CREATININE 0.6 MG/DL (0.55-1.30); PHOSPHORUS 3.2 MG/DL (2.5-4.9); POTASSIUM 3.7 MMOL/L (3.5-5.1); SODIUM 126 MMOL/L (136-145)
[2019-02-01 07:53] LABS: BASOPHILS % (AUTO) 1.7 % (0.0-2.0); EOSINOPHILS % (AUTO) 2.2 % (0.0-3.0); HEMATOCRIT 33.8 % (37.0-47.0); HEMOGLOBIN 12.2 G/DL (12.0-16.0); LYMPHOCYTES % (AUTO) 25.6 % (20.0-45.0); MEAN CORPUSCULAR VOLUME 89 FL (80-99); MONOCYTES % (AUTO) 11.5 % (1.0-10.0); PLATELET COUNT 269 K/UL (150-450); RED BLOOD COUNT 3.78 M/UL (4.20-5.40); RED CELL DISTRIBUTION WIDTH 11.3 % (11.6-14.8)
[2019-02-01 08:00] VITALS: BP 132/73
--- NOTE | 2019-02-01 08:15 | NUR ---
NURSE NOTES: Marian Rodriges was made aware of sodium 127. Orders were entered. Discharge was discontinued.
[2019-02-01] MEDS ORDERED: NaCl 3% 500ml 250 ML IV ONE (09:00)
[2019-02-01] MEDS: Sodium Chloride 1gm Tab ORAL SCH ×3 (09:29→17:43)
[2019-02-01] MEDS: Metoprolol 25mg tab ORAL SCH ×2 (09:29→21:05)
[2019-02-01] MEDS: Docusate 100mg cap ORAL SCH ×2 (09:30→17:43)
[2019-02-01] MEDS: Heparin 5000 units/ml inj SUBQ SCH ×2 (09:31→21:05)
[2019-02-01 12:00] VITALS: BP 128/55
--- NOTE | 2019-02-01 15:28 | Internal Med Progress Note ---
Subjective Date of Service: Feb 01, 2019 Physician Name Angelito Richard Attending Physician Eyad Nuñez MD Current Medications Medications (Trade) Dose Ordered Sig/Tien Route PRN Reason Start Time Stop Time Status Last Admin Dose Admin Acetaminophen (Tylenol) 650 mg Q4H PRN ORAL fever 01/29/19 13:30 02/28/19 13:29 02/01/19 11:03 Dextrose (Dextrose 50%) 25 ml Q30M PRN IV Hypoglycemia 01/29/19 13:30 02/28/19 13:29 Dextrose (Dextrose 50%) 50 ml Q30M PRN IV Hypoglycemia 01/29/19 13:30 02/28/19 13:29 Docusate Sodium (Colace) 100 mg TWICE A DAY ORAL 01/29/19 18:00 02/28/19 17:59 02/01/19 09:30 Heparin Sodium (Porcine) (Heparin 5000 units/ml) 5,000 units EVERY 12 HOURS SUBQ 01/29/19 21:00 02/28/19 20:59 02/01/19 09:31 Insulin Aspart (NovoLOG) BEFORE MEALS AND HS SUBQ 01/29/19 16:30 02/28/19 16:29 01/31/19 06:49 Levothyroxine Sodium (Synthroid) 25 mcg DAILY@0630 ORAL 02/02/19 06:30 03/04/19 06:29 Lorazepam (Ativan 2mg/ml 1ml) 0.5 mg Q4H PRN IV For Anxiety 01/29/19 13:30 02/05/19 13:29 Metoprolol Tartrate (Lopressor) 25 mg EVERY 12 HOURS ORAL 01/29/19 21:00 02/28/19 20:59 02/01/19 09:29 Morphine Sulfate (Morphine Sulfate) 1 mg Q4H PRN IVP For Pain 01/29/19 13:30 02/05/19 13:29 Ondansetron HCl (Zofran) 4 mg Q6H PRN IVP Nausea & Vomiting 01/29/19 13:30 02/28/19 13:29 Polyethylene Glycol (Miralax) 17 gm HSPRN PRN ORAL Constipation 01/29/19 13:30 02/28/19 13:29 Sodium Chloride 250 ml @ 30 mls/hr ONCE ONCE IV 02/01/19 09:00 02/01/19 17:19 02/01/19 09:31 Sodium Chloride (NaCl) 1 gm THREE TIMES A DAY ORAL 01/31/19 11:30 03/02/19 11:29 02/01/19 13:43 Zolpidem Tartrate (Ambien) 5 mg HSPRN PRN ORAL Insomnia 01/29/19 13:30 02/05/19 13:29 01/31/19 20:25 Allergies: Coded Allergies: PENICILLINS (Verified Allergy, Unknown, 01/29/19) ROS Limited/Unobtainable: Yes Subjective 88 YO F admitted with hyponatremia. Cover for Int Med-Dr Nuñez Objective Last Vital Signs Date Time Temp Pulse Resp B/P (MAP) Pulse Ox O2 Delivery O2 Flow Rate FiO2 02/01/19 12:00 97.7 66 18 128/55 (79) 97 02/01/19 09:00 Room Air Laboratory Tests Test 02/01/19 06:25 White Blood Count 7.0 K/UL (4.8-10.8) Red Blood Count 3.78 M/UL (4.20-5.40) L Hemoglobin 12.2 G/DL (12.0-16.0) Hematocrit 33.8 % (37.0-47.0) L Mean Corpuscular Volume 89 FL (80-99) Mean Corpuscular Hemoglobin 32.2 PG (27.0-31.0) H Mean Corpuscular Hemoglobin Concent 36.0 G/DL (32.0-36.0) Red Cell Distribution Width 11.3 % (11.6-14.8) L Platelet Count 269 K/UL (150-450) Mean Platelet Volume 5.8 FL (6.5-10.1) L Neutrophils (%) (Auto) 59.0 % (45.0-75.0) Lymphocytes (%) (Auto) 25.6 % (20.0-45.0) Monocytes (%) (Auto) 11.5 % (1.0-10.0) H Eosinophils (%) (Auto) 2.2 % (0.0-3.0) Basophils (%) (Auto) 1.7 % (0.0-2.0) Sodium Level 126 MMOL/L (136-145) L Potassium Level 3.7 MMOL/L (3.5-5.1) Chloride Level 94 MMOL/L (98-107) L Carbon Dioxide Level 24 MMOL/L (21-32) Anion Gap 8 mmol/L (5-15) Blood Urea Nitrogen 15 mg/dL (7-18) Creatinine 0.6 MG/DL (0.55-1.30) Estimat Glomerular Filtration Rate mL/min (>60) Glucose Level 83 MG/DL (74-106) Calcium Level 8.3 MG/DL (8.5-10.1) L Phosphorus Level 3.2 MG/DL (2.5-4.9) Magnesium Level 1.7 MG/DL (1.8-2.4) L Total Bilirubin 0.8 MG/DL (0.2-1.0) Aspartate Amino Transf (AST/SGOT) 32 U/L (15-37) Alanine Aminotransferase (ALT/SGPT) 23 U/L (12-78) Alkaline Phosphatase 70 U/L (46-116) Total Protein 6.2 G/DL (6.4-8.2) L Albumin 3.0 G/DL (3.4-5.0) L Globulin 3.2 g/dL Albumin/Globulin Ratio 0.9 (1.0-2.7) L Microbiology Date/Time Source Procedure Growth Status 01/29/19 18:20 Rectum - Final NO CARBAPENEM-RESISTANT ENTEROBACTERI... Complete 01/29/19 18:20 Rectum VRE Culture - Final NO VANCOMYCIN RESISTANT ENTEROCOCCUS ... Complete Intake and Output 01/31/19 02/01/19 18:59 06:59 Intake Total 200 ml Balance 200 ml Intake Oral 200 ml # Voids 2 5 Objective PHYSICAL EXAMINATION: GENERAL: The patient is well-developed and well-nourished thin-appearing female, in no apparent distress. HEENT: Eyes, pupils are equal and responsive to light and accommodation. Extraocular movements are intact. NECK: Supple without lymphadenopathy. CHEST: Lungs are clear to auscultation bilaterally without wheezes or rales. CARDIOVASCULAR: Regular rhythm and rate. S1 and S2 are normal without murmurs, rubs, or gallops. ABDOMEN: Soft, nontender, and nondistended. Positive bowel sounds. No evidence of hepatosplenomegaly. Currently, no rebound or guarding noted. EXTREMITIES: Negative for clubbing, cyanosis, or edema. RECTAL/GENITAL: Not performed. NEUROLOGIC: Cranial nerves II through XII are grossly intact without focal deficits. Motor strength is 5/5 bilaterally. Deep tendon reflexes are 2+ plantar. Assessment/Plan Assessment/Plan ASSESSMENT: This is an 88-year-old female. 1. Hyponatremia. 2. Diabetes type 2. 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 4. Hypercholesterolemia. 5. Hypertension. 6. Alzheimer's dementia. 7. Gastroesophageal reflux disease. TREATMENT: 1. Hyponatremia. The patient is currently receiving intravenous fluids with normal saline. Sodium will be slowly corrected. Differential includes SIADH. A Nephrology consultation has been obtained with Dr. Cobian. We will follow recommendations of Nephrology. 2. Diabetes. The patient was not on insulin in the long term facility. Continue novolog sliding scale 3. Hypercholesterolemia. Continue atorvastatin as above. 4. Hypertension. Continue metoprolol and valsartan as above. 5. Alzheimer's dementia. 6. Gastroesophageal reflux disease. Continue Protonix as above. Angelito Richard MD Feb 01, 2019 15:28
[2019-02-01 16:00] VITALS: BP 122/59
[2019-02-01 18:54] LABS: ANION GAP 4 mmol/L (5-15); BLOOD UREA NITROGEN 16 mg/dL (7-18); CALCIUM 8.3 MG/DL (8.5-10.1); CARBON DIOXIDE 27 MMOL/L (21-32); CHLORIDE 97 MMOL/L (98-107); CREATININE 0.7 MG/DL (0.55-1.30); POTASSIUM 3.9 MMOL/L (3.5-5.1); SODIUM 128 MMOL/L (136-145)
--- NOTE | 2019-02-01 19:50 | NUR ---
NURSE NOTES: Received report from PAUL Flores. Patient is awake lying semi-michel's; resting comfortably. No signs of acute distress noted; denies pain at this time. AOx2-3; able to make needs known. Primarily Arabic speaking. Ambulates to bedside commode with assistance. Checked IV site; occluded. Will re-establish new IV access at a later time. Patient also noted to be adamantly refusing pr specialist. Risks and benefits explained; still refusing. Bed at lowest position, brakes on, siderails up x3. Call light within reach. Will continue to monitor.
--- NOTE | 2019-02-01 19:55 | NUR ---
NURSE NOTES: Called Aide Rodriges NP regarding patient's Magnesium level of 1.7. Awaiting callback for any further orders.
[2019-02-01 20:00] VITALS: BP 121/50
--- NOTE | 2019-02-01 20:05 | NUR ---
NURSE NOTES: Received order for 1gm Mag Sulfate IV x1 from AINSLEY Noble. Noted and carried out.
[2019-02-02] VITALS: BP 119/65
--- NOTE | 2019-02-02 03:10 | NUR ---
NURSE NOTES: Assisted patient to bathroom. No signs of acute distress noted; denies pain at this time.
[2019-02-02 04:00] VITALS: BP 142/67
[2019-02-02] MEDS: NovoLOG Insulin Flexpen SUBQ SCH ×4 (05:39→20:50)
[2019-02-02] MEDS ORDERED: Levothyroxine 25mcg tab ORAL SCH (06:30)
--- NOTE | 2019-02-02 07:15 | NUR ---
NURSE NOTES: Received report from PAUL Flores. Patient is awake lying semi-michel's; resting comfortably. No signs of acute distress noted; denies pain at this time. AOx2-3; able to make needs known. Primarily Sinhala speaking. Ambulates to bedside commode with assistance. Right FA 22g is intact and patent. Patient also noted to be adamantly refusing campus monitor. Risks and benefits explained; still refusing. Bed at lowest position, brakes on, side rails up x3. Call light within reach. Will continue to monitor.
--- NOTE | 2019-02-02 07:20 | NUR ---
HAND-OFF: Report given to PAUL Paul and PAUL Edmond. Patient is awake lying semi-michel's; resting comfortably. In stable condition.
[2019-02-02 07:57] LABS: BASOPHILS % (AUTO) 1.9 % (0.0-2.0); EOSINOPHILS % (AUTO) 1.7 % (0.0-3.0); HEMATOCRIT 33.5 % (37.0-47.0); HEMOGLOBIN 12.1 G/DL (12.0-16.0); MEAN CORPUSCULAR VOLUME 90 FL (80-99); MONOCYTES % (AUTO) 8.6 % (1.0-10.0); NEUTROPHILS % (AUTO) 65.7 % (45.0-75.0); PLATELET COUNT 252 K/UL (150-450); RED BLOOD COUNT 3.73 M/UL (4.20-5.40); RED CELL DISTRIBUTION WIDTH 11.6 % (11.6-14.8); WHITE BLOOD COUNT 7.9 K/UL (4.8-10.8)
[2019-02-02 08:00] VITALS: BP 111/48
[2019-02-02 08:05] LABS: ANION GAP 9 mmol/L (5-15); BLOOD UREA NITROGEN 12 mg/dL (7-18); CARBON DIOXIDE 23 MMOL/L (21-32); CHLORIDE 98 MMOL/L (98-107); CREATININE 0.5 MG/DL (0.55-1.30); POTASSIUM 3.4 MMOL/L (3.5-5.1); SODIUM 130 MMOL/L (136-145)
--- NOTE | 2019-02-02 08:25 | Pulmonology Progress Note ---
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 Diabetes mellitus Hypertension Alzheimer samuel ntia Hypothyroidism E/lyte imbalance /hypo Mg, hypo K PLAN OF CARE Hyponatremia work-up noted probably SIADH Na responded to dc IVF, fluid restriction, and 500ml 3% NS cortisol level ok, no evidence of adrenal insufficiency also started on levothyroxine-TSH high, free T3 low replace K and Mg, check levels in am nephro eval pending BP management with BB BS management with SSI DVT prophylaxis BCX negative ; UCX mixed GPO, supportive care bowel regimen case discussed and evaluated by supervising physician Subjective Allergies: Coded Allergies: PENICILLINS (Verified Allergy, Unknown, 01/29/19) Subjective Na up to 130 with fluid restrictions and 500 ml 3% NaCL K-3.4, Mg-1.7 no CP no SOB pulse ox stable on RA Objective Last 24 Hour Vital Signs Date Time Temp Pulse Resp B/P (MAP) Pulse Ox O2 Delivery O2 Flow Rate FiO2 02/02/19 08:00 98.1 73 18 111/48 (69) 98 02/02/19 04:00 97.8 68 18 142/67 (92) 98 02/02/19 00:00 97.7 72 18 119/65 (83) 97 02/01/19 21:05 72 121/50 02/01/19 21:00 Room Air 02/01/19 20:00 97.7 72 18 121/50 (73) 97 02/01/19 16:00 97.7 69 20 122/59 (80) 98 02/01/19 12:00 97.7 66 18 128/55 (79) 97 02/01/19 09:29 78 132/73 02/01/19 09:00 Room Air Intake and Output 02/01/19 02/02/19 19:00 07:00 Intake Total 270 ml 470 ml Output Total 125 ml 400 ml Balance 145 ml 70 ml Intake Oral 270 ml 370 ml IV Total 100 ml Output Urine Total 125 ml 400 ml # Voids 13 # Bowel Movements 1 Objective General Appearance: frail elderly female in NAD HEENT: normocephalic, atraumatic, anicteric, mucous membranes moist Respiratory/Chest: lungs clear with moderate air exchange, no respiratory distress, no accessory muscle use Cardiovascular: normal rate, regular rhythm Abdomen: soft, non tender, non distended Extremities: no edema Neurologic/Psychiatric: abnormal gait, alert , responsive , moving all extremities Musculoskeletal: atrophy BLE Laboratory Tests 02/01/19 18:00: Sodium Level 128L, Potassium Level 3.9, Chloride Level 97L, Carbon Dioxide Level 27, Anion Gap 4L, Blood Urea Nitrogen 16, Creatinine 0.7, Estimat Glomerular Filtration Rate , Glucose Level 132H, Calcium Level 8.3L 02/02/19 07:05: Sodium Level 130L, Potassium Level 3.4L, Chloride Level 98, Carbon Dioxide Level 23, Anion Gap 9, Blood Urea Nitrogen 12, Creatinine 0.5L, Estimat Glomerular Filtration Rate , Glucose Level 86, Calcium Level 8.0L, White Blood Count 7.9, Red Blood Count 3.73L, Hemoglobin 12.1, Hematocrit 33.5L, Mean Corpuscular Volume 90, Mean Corpuscular Hemoglobin 32.5H, Mean Corpuscular Hemoglobin Concent 36.2H, Red Cell Distribution Width 11.6, Platelet Count 252, Mean Platelet Volume 5.4L, Neutrophils (%) (Auto) 65.7, Lymphocytes (%) (Auto) 22.0, Monocytes (%) (Auto) 8.6, Eosinophils (%) (Auto) 1.7, Basophils (%) (Auto ) 1.9, Magnesium Level 1.7L Current Medications Medications (Trade) Dose Ordered Sig/Tien Route PRN Reason Start Time Stop Time Status Last Admin Dose Admin Acetaminophen (Tylenol) 650 mg Q4H PRN ORAL fever 01/29/19 13:30 02/28/19 13:29 02/01/19 11:03 Dextrose (Dextrose 50%) 25 ml Q30M PRN IV Hypoglycemia 01/29/19 13:30 02/28/19 13:29 Dextrose (Dextrose 50%) 50 ml Q30M PRN IV Hypoglycemia 01/29/19 13:30 02/28/19 13:29 Docusate Sodium (Colace) 100 mg TWICE A DAY ORAL 01/29/19 18:00 02/28/19 17:59 02/01/19 17:43 Heparin Sodium (Porcine) (Heparin 5000 units/ml) 5,000 units EVERY 12 HOURS SUBQ 01/29/19 21:00 02/28/19 20:59 02/01/19 21:05 Insulin Aspart (NovoLOG) BEFORE MEALS AND HS SUBQ 01/29/19 16:30 02/28/19 16:29 02/01/19 17:43 Levothyroxine Sodium (Synthroid) 25 mcg DAILY@0630 ORAL 02/02/19 06:30 03/04/19 06:29 02/02/19 05:37 Lorazepam (Ativan 2mg/ml 1ml) 0.5 mg Q4H PRN IV For Anxiety 01/29/19 13:30 02/05/19 13:29 Metoprolol Tartrate (Lopressor) 25 mg EVERY 12 HOURS ORAL 01/29/19 21:00 02/28/19 20:59 02/01/19 21:05 Morphine Sulfate (Morphine Sulfate) 1 mg Q4H PRN IVP For Pain 01/29/19 13:30 02/05/19 13:29 Ondansetron HCl (Zofran) 4 mg Q6H PRN IVP Nausea & Vomiting 01/29/19 13:30 02/28/19 13:29 Polyethylene Glycol (Miralax) 17 gm HSPRN PRN ORAL Constipation 01/29/19 13:30 02/28/19 13:29 Sodium Chloride (NaCl) 1 gm THREE TIMES A DAY ORAL 01/31/19 11:30 03/02/19 11:29 02/01/19 17:43 Zolpidem Tartrate (Ambien) 5 mg HSPRN PRN ORAL Insomnia 01/29/19 13:30 02/05/19 13:29 01/31/19 20:25 Aide Rodriges NP Feb 02, 2019 08:25
[2019-02-02] MEDS: Sodium Chloride 1gm Tab ORAL SCH ×2 (08:48→14:57)
[2019-02-02] MEDS: Metoprolol 25mg tab ORAL SCH (08:49)
[2019-02-02] MEDS: Docusate 100mg cap ORAL SCH ×2 (08:49→18:00)
[2019-02-02] MEDS: Heparin 5000 units/ml inj SUBQ SCH ×2 (08:51→20:49)
[2019-02-02] MEDS: Metoprolol Tartrate 12.5mg TAB ORAL SCH ×2 (09:00→20:47)
[2019-02-02] MEDS ORDERED: NaCl 3% 500ml 250 ML IV ONE (10:00)
[2019-02-02 10:07] LABS: ALANINE AMINOTRANSFERASE 31 U/L (12-78); ALBUMIN 2.9 G/DL (3.4-5.0); ALKALINE PHOSPHATASE 65 U/L (46-116); ASPARTATE AMINO TRANSFERASE 40 U/L (15-37); BILIRUBIN,DIRECT 0.1 MG/DL (0.0-0.3); BILIRUBIN,TOTAL 0.5 MG/DL (0.2-1.0); PHOSPHORUS 3.1 MG/DL (2.5-4.9)
[2019-02-02 12:00] VITALS: BP_SYST 117; BP_SYST 160; BP_DIAS 107; BP_DIAS 52
--- NOTE | 2019-02-02 14:00 | NUR ---
NURSE NOTES: Noted throughout the day, patient made attempts every 15 to 30 minutes to use the commode to urinate. Address patient's concern using langue line and telephone instrument supervisor.
--- NOTE | 2019-02-02 14:26 | Internal Med Progress Note ---
Subjective Date of Service: Feb 02, 2019 Physician Name Angelito Richard Attending Physician Eyad Nuñez MD Current Medications Medications (Trade) Dose Ordered Sig/Tien Route PRN Reason Start Time Stop Time Status Last Admin Dose Admin Acetaminophen (Tylenol) 650 mg Q4H PRN ORAL fever 01/29/19 13:30 02/28/19 13:29 02/01/19 11:03 Dextrose (Dextrose 50%) 25 ml Q30M PRN IV Hypoglycemia 01/29/19 13:30 02/28/19 13:29 Dextrose (Dextrose 50%) 50 ml Q30M PRN IV Hypoglycemia 01/29/19 13:30 02/28/19 13:29 Docusate Sodium (Colace) 100 mg TWICE A DAY ORAL 01/29/19 18:00 02/28/19 17:59 02/02/19 08:49 Heparin Sodium (Porcine) (Heparin 5000 units/ml) 5,000 units EVERY 12 HOURS SUBQ 01/29/19 21:00 02/28/19 20:59 02/02/19 08:51 Insulin Aspart (NovoLOG) BEFORE MEALS AND HS SUBQ 01/29/19 16:30 02/28/19 16:29 02/02/19 12:21 Levothyroxine Sodium (Synthroid) 25 mcg DAILY@0630 ORAL 02/02/19 06:30 03/04/19 06:29 02/02/19 05:37 Lorazepam (Ativan 2mg/ml 1ml) 0.5 mg Q4H PRN IV For Anxiety 01/29/19 13:30 02/05/19 13:29 Metoprolol Tartrate (Lopressor) 25 mg EVERY 12 HOURS ORAL 01/29/19 21:00 02/28/19 20:59 02/02/19 08:49 Morphine Sulfate (Morphine Sulfate) 1 mg Q4H PRN IVP For Pain 01/29/19 13:30 02/05/19 13:29 Ondansetron HCl (Zofran) 4 mg Q6H PRN IVP Nausea & Vomiting 01/29/19 13:30 02/28/19 13:29 Polyethylene Glycol (Miralax) 17 gm HSPRN PRN ORAL Constipation 01/29/19 13:30 02/28/19 13:29 Sodium Chloride 250 ml @ 30 mls/hr ONCE ONCE IV 02/02/19 10:00 02/02/19 18:19 02/02/19 10:43 Sodium Chloride (NaCl) 1 gm THREE TIMES A DAY ORAL 01/31/19 11:30 03/02/19 11:29 02/02/19 08:48 Zolpidem Tartrate (Ambien) 5 mg HSPRN PRN ORAL Insomnia 01/29/19 13:30 02/05/19 13:29 01/31/19 20:25 Allergies: Coded Allergies: PENICILLINS (Verified Allergy, Unknown, 01/29/19) ROS Limited/Unobtainable: Yes Subjective 88 YO F admitted with hyponatremia. Cover for Int Chuck-Dr Nuñez Objective Last Vital Signs Date Time Temp Pulse Resp B/P (MAP) Pulse Ox O2 Delivery O2 Flow Rate FiO2 02/02/19 09:00 Room Air 02/02/19 08:49 73 111/48 02/02/19 08:00 98.1 18 98 Laboratory Tests Test 02/01/19 18:00 02/02/19 07:05 Sodium Level 128 MMOL/L (136-145) L 130 MMOL/L (136-145) L Potassium Level 3.9 MMOL/L (3.5-5.1) 3.4 MMOL/L (3.5-5.1) L Chloride Level 97 MMOL/L (98-107) L 98 MMOL/L (98-107) Carbon Dioxide Level 27 MMOL/L (21-32) 23 MMOL/L (21-32) Anion Gap 4 mmol/L (5-15) L 9 mmol/L (5-15) Blood Urea Nitrogen 16 mg/dL (7-18) 12 mg/dL (7-18) Creatinine 0.7 MG/DL (0.55-1.30) 0.5 MG/DL (0.55-1.30) L Estimat Glomerular Filtration Rate mL/min (>60) mL/min (>60) Glucose Level 132 MG/DL (74-106) H 86 MG/DL (74-106) Calcium Level 8.3 MG/DL (8.5-10.1) L 8.0 MG/DL (8.5-10.1) L White Blood Count 7.9 K/UL (4.8-10.8) Red Blood Count 3.73 M/UL (4.20-5.40) L Hemoglobin 12.1 G/DL (12.0-16.0) Hematocrit 33.5 % (37.0-47.0) L Mean Corpuscular Volume 90 FL (80-99) Mean Corpuscular Hemoglobin 32.5 PG (27.0-31.0) H Mean Corpuscular Hemoglobin Concent 36.2 G/DL (32.0-36.0) H Red Cell Distribution Width 11.6 % (11.6-14.8) Platelet Count 252 K/UL (150-450) Mean Platelet Volume 5.4 FL (6.5-10.1) L Neutrophils (%) (Auto) 65.7 % (45.0-75.0) Lymphocytes (%) (Auto) 22.0 % (20.0-45.0) Monocytes (%) (Auto) 8.6 % (1.0-10.0) Eosinophils (%) (Auto) 1.7 % (0.0-3.0) Basophils (%) (Auto) 1.9 % (0.0-2.0) Osmolality 264 mOsm/kg (297-317) L Uric Acid 2.3 MG/DL (2.6-7.2) L Phosphorus Level 3.1 MG/DL (2.5-4.9) Magnesium Level 1.7 MG/DL (1.8-2.4) L Total Bilirubin 0.5 MG/DL (0.2-1.0) Direct Bilirubin 0.1 MG/DL (0.0-0.3) Aspartate Amino Transf (AST/SGOT) 40 U/L (15-37) H Alanine Aminotransferase (ALT/SGPT) 31 U/L (12-78) Alkaline Phosphatase 65 U/L (46-116) Total Protein 6.0 G/DL (6.4-8.2) L Albumin 2.9 G/DL (3.4-5.0) L Intake and Output 02/01/19 02/02/19 19:00 07:00 Intake Total 270 ml 470 ml Output Total 125 ml 400 ml Balance 145 ml 70 ml Intake Oral 270 ml 370 ml IV Total 100 ml Output Urine Total 125 ml 400 ml # Voids 13 # Bowel Movements 1 Objective PHYSICAL EXAMINATION: GENERAL: The patient is well-developed and well-nourished thin-appearing female, in no apparent distress. HEENT: Eyes, pupils are equal and responsive to light and accommodation. Extraocular movements are intact. NECK: Supple without lymphadenopathy. CHEST: Lungs are clear to auscultation bilaterally without wheezes or rales. CARDIOVASCULAR: Regular rhythm and rate. S1 and S2 are normal without murmurs, rubs, or gallops. ABDOMEN: Soft, nontender, and nondistended. Positive bowel sounds. No evidence of hepatosplenomegaly. Currently, no rebound or guarding noted. EXTREMITIES: Negative for clubbing, cyanosis, or edema. RECTAL/GENITAL: Not performed. NEUROLOGIC: Cranial nerves II through XII are grossly intact without focal deficits. Motor strength is 5/5 bilaterally. Deep tendon reflexes are 2+ plantar. Assessment/Plan Assessment/Plan ASSESSMENT: This is an 88-year-old female. 1. Hyponatremia. 2. Diabetes type 2. 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 4. Hypercholesterolemia. 5. Hypertension. 6. Alzheimer's dementia. 7. Gastroesophageal reflux disease. 8. Hypothyroidism TREATMENT: 1. Hyponatremia. The patient is currently receiving intravenous fluids with normal saline. Sodium will be slowly corrected. Differential includes SIADH. A Nephrology consultation has been obtained with Dr. Cobian. We will follow recommendations of Nephrology. 2. Diabetes. The patient was not on insulin in the detention facility. Continue novolog sliding scale 3. Hypercholesterolemia. Continue atorvastatin as above. 4. Hypertension. Continue metoprolol and valsartan as above. 5. Alzheimer's dementia. 6. Gastroesophageal reflux disease. Continue Protonix as above. 7. Cont levoxyl Angelito Richard MD Feb 02, 2019 14:26
--- NOTE | 2019-02-02 14:50 | Cardiology Report ---
APPROVED REPORT EKG Measurement Heart [id number] Sinus rhythm with premature atrial complexes Nonspecific ST abnormality Abnormal ECG
--- NOTE | 2019-02-02 15:25 | Consultation ---
Consult Note Consult Note asked to eval for hypoNatremia patient examined data reviewed The patient has a history of hyponatremia. The patient is a resident of [facility]. The patient was transferred to [facility] for "low sodium." Upon arrival at [facility], the patient was found to have sodium level of 121. . Assessment/Plan Hyponatremia, due to SIADH Evidence of UTI Diabetes mellitus Hypertension Alzheimer Dementia Hypothyroidism E/lyte imbalance /hypo Mg, hypo K 3% saline + Lasix + PO KCL Monitor lytes adjust BP meds adjust Thyroid meds urine cultures Tho Cobian MD Feb 02, 2019 15:25
[2019-02-02 16:00] VITALS: BP 135/59
[2019-02-02] MEDS ORDERED: NaCl 3% 500ml 500 ML IV ONE (16:30)
--- NOTE | 2019-02-02 19:20 | NUR ---
HAND-OFF: Report given to PAUL Almonte. A page to Dr. Cobian in regards to NA CL 3% second bag to clarify order for next shift. Second bag of NA CL 3% is pending.
--- NOTE | 2019-02-02 19:30 | NUR ---
NURSE NOTES: Received report from PAUL Paul. Patient is awake lying semi-michel's; resting comfortably. No signs of acute distress noted; denies pain at this time. AOx2-3; able to make needs known. Primarily Citizen [place] speaking. Ambulates to bedside commode with assistance. Right FA 22g is intact and patent. Patient adamantly refuses outside plant supervisor. Risks and benefits explained; still refusing. Bed at lowest position, locked, side rails up x3, bed alarm placed on zone 3 and am charting beside patient's bed next to her room, which is close to the nurses station. Explained to [patient to call for assistance but precautions in place in case she decides to try to get up despite being asked to call for assistance. Call light within reach. Will continue to monitor closely.
[2019-02-02 20:00] VITALS: BP 127/58
--- NOTE | 2019-02-02 20:00 | NUR ---
NURSE NOTES: Called Dr Cobian to clarify amount of hypertonic saline 3% to be given. Previous order was for [address] Cobian ordered an additional 500 mL- Informed Dr Cobian of previous order that was written by Antelmo for [address] Cobian to give a total volume of 500 mL of 3% hypertonic saline. 250 mL had infused on previous shift.
[2019-02-03] VITALS (7 sets, daily range): BP systolic 119–146; BP diastolic 51–75
--- NOTE | 2019-02-03 05:15 | NUR ---
NURSE NOTES: Full amount (total 500 ml) of hypertonic saline infused.
--- NOTE | 2019-02-03 05:30 | NUR ---
NURSE NOTES: PATIENT TRANSFERRED FROM TELE VIA BED TO ROOM 401 BED 2, ASLEEP, AWAKENED TO TACTILE STIMULI SECONDARY TO ATIVAN IV PRIOR TO TRANSFER, VITALS MONITORED, AFEBRILE. NO SIGNS AND SYMPTOMS OF ACUTE CARDIO RESPIRATORY DISTRESS/SHORTNESS OF BREATH. NAD.
--- NOTE | 2019-02-03 05:40 | NUR ---
HAND-OFF: Report given to AGATA Anguiano. Pt transferred to 4th floor med surg 401-2. Transferred in stable condition, sleeping at this time. No s/sx of respiratory distress, breathing even and unlabored. Endorsed that the 3% hypertonic saline had infused (the full 500 mL as ordered by Dr Cobian). Pt transferred with all belongings accounted for. Endorsed that patient is a fall risk and while sleeping at this time can be very impulsive and tries to get out of bed frequently.
[2019-02-03] MEDS ORDERED: LORazepam Inj 2mg/ml 1ml IV PRN (06:00)
[2019-02-03] MEDS ORDERED: NACL 3% IV SCH (06:00)
[2019-02-03] MEDS: NovoLOG Insulin Flexpen SUBQ SCH ×4 (06:19→19:49)
[2019-02-03] MEDS: Levothyroxine 25mcg tab ORAL SCH (06:30)
[2019-02-03] MEDS ORDERED: NACL 3% IV ONE (07:30)
--- NOTE | 2019-02-03 07:38 | NUR ---
HAND-OFF: Report given to renetta nayak.
[2019-02-03 07:51] LABS: ALANINE AMINOTRANSFERASE 30 U/L (12-78); ALBUMIN 2.8 G/DL (3.4-5.0); ALBUMIN/GLOBULIN RATIO 0.9 (1.0-2.7); ALKALINE PHOSPHATASE 64 U/L (46-116); ANION GAP 5 mmol/L (5-15); ASPARTATE AMINO TRANSFERASE 34 U/L (15-37); BILIRUBIN,TOTAL 0.6 MG/DL (0.2-1.0); BLOOD UREA NITROGEN 11 mg/dL (7-18); CALCIUM 8.4 MG/DL (8.5-10.1); CARBON DIOXIDE 24 MMOL/L (21-32); CHLORIDE 101 MMOL/L (98-107); CREATININE 0.8 MG/DL (0.55-1.30); POTASSIUM 4.6 MMOL/L (3.5-5.1); SODIUM 130 MMOL/L (136-145)
[2019-02-03 07:52] LABS: BASOPHILS % (AUTO) 2.3 % (0.0-2.0); HEMATOCRIT 33.3 % (37.0-47.0); HEMOGLOBIN 11.7 G/DL (12.0-16.0); LYMPHOCYTES % (AUTO) 28.9 % (20.0-45.0); MEAN CORPUSCULAR VOLUME 91 FL (80-99); MONOCYTES % (AUTO) 12.6 % (1.0-10.0); NEUTROPHILS % (AUTO) 53.2 % (45.0-75.0); PLATELET COUNT 250 K/UL (150-450); RED BLOOD COUNT 3.65 M/UL (4.20-5.40); RED CELL DISTRIBUTION WIDTH 12.1 % (11.6-14.8); WHITE BLOOD COUNT 5.4 K/UL (4.8-10.8)
[2019-02-03 08:04] LABS: PHOSPHORUS 3.3 MG/DL (2.5-4.9)
[2019-02-03] MEDS: Heparin 5000 units/ml inj SUBQ SCH ×2 (09:00→20:28)
[2019-02-03] MEDS ORDERED: Liothyronine 5mcg tab ORAL SCH (09:00)
[2019-02-03] MEDS: Docusate 100mg cap ORAL SCH ×2 (09:36→18:00)
[2019-02-03] MEDS: Metoprolol Tartrate 12.5mg TAB ORAL SCH ×2 (09:37→20:34)
[2019-02-03] MEDS: Liothyronine 5mcg tab ORAL SCH (09:37)
--- NOTE | 2019-02-03 10:24 | Diagnostic Imaging Report ---
Indication: Fall, trauma, pain Technique: 3 views of the lumbar spine Comparison: None Findings: The AP view is limited by extensive overlying bowel gas. There is mild dextro scoliotic deformity. There is a compression fracture deformity of the L2 vertebral body, with approximately 40% % height loss. There is also questionably a compression fracture deformity of the T11 vertebral body, although this segment is not well visualized. The remaining vertebral body heights are preserved the bones are osteoporotic. The pedicles are intact. The sacral arches are preserved. The sacroiliac joint spaces are preserved. Impression: Age-indeterminate compression fracture of the L2 vertebral body. More questionable compression fracture of the T11 vertebral body. Consider MRI for better characterization if clinically indicated. Mild scoliotic deformity, may be in part due to the compression fracture Osteoporosis
--- NOTE | 2019-02-03 10:29 | NUR ---
RADIOLOGY DEPT., LUMBAR SPINE X-RAY COMPLETED. PATIENT TRANSFER TO CT ON DEPT STRATCHER AND ORIGINAL BED RETURNED TO 401-2 SLOT. INFORMED NURSE ABELARDO OF URINE ON BED AND PATIENT AND REQUESTED CLEANING AND CLEAN BEDDING TO FOLLOW.-LexyDYE
--- NOTE | 2019-02-03 10:41 | Diagnostic Imaging Report ---
Indications: Altered mental status Technique: Spiral acquisitions obtained through the brain. Angled axial and coronal 5 x 5 mm slices were reconstructed. Total dose length product 1611 mGycm. CTDI vol(s) 68 mGy. Dose reduction achieved using automated exposure control Comparison: None. Findings: There is age-related enlargement of the ventricles and extra axial CSF spaces. There is periventricular deep white matter low-attenuation consistent with chronic microvascular ischemic change. Otherwise normal swartz-white differentiation. No acute intracranial hemorrhage or edema, mass effect, nor midline shift. There is evidence of prior ocular surgery on the left. There is mucosal disease of the left maxillary sinus. The mastoids are clear. The calvarium is intact. Impression: Chronic age-related changes, as described Negative for acute intracranial bleed or mass effect The CT scanner at [facility] is accredited by the [employer] and the scans are performed using protocols designed to limit radiation exposure to as low as reasonably achievable to attain images of sufficient resolution adequate for diagnostic evaluation.
--- NOTE | 2019-02-03 11:07 | NUR ---
NURSE NOTES: Patient received from AGATA Anguiano this AM. Patient alert to name and time. Patient side rails upx2, bed alarm on. Call light within reach.
--- NOTE | 2019-02-03 11:12 | NUR ---
NURSE NOTES: Patient found on floor. Patient reports she wanted to go to nurse's station because, she was tired of being alone. Patient says that she DID NOT hit head. Patient reports she hurt left leg and lower back. Patient is alert to name and time. Patient is placed near nurse's station. Patient is wearing non-skid socks. Fall precaution is placed outside patient's room. Vital signs were taken and are stable. Pupils are brisk and reactive to light. Dr. Nuñez notified. New order for imaging received. Will continue to monitor.
--- NOTE | 2019-02-03 12:33 | NUR ---
CASE MANAGEMENT:REVIEW 02/03/19 SI: ELECTROLYTE IMBALANCE HYPONATREMIA. DM 97.8 71 18 121/57 97% ON RA H.H-11.7/33.3 NA-130 IS: IVF NACL 3% @30/HR X200CC LOPRESSOR PO Q12 CYTOMEL PO QD K-DUR PO BID HEPARIN SQ Q12 IV LASIX Q8HRS SS INSULIN AC+HS : MED/SURG STATUS DCP: FROM [facility] CONV PLAN: CORRECT SODIUM
--- NOTE | 2019-02-03 13:09 | Nephrology Progress Note ---
Assessment/Plan Problem List: (1) Hyponatremia (2) UTI (urinary tract infection) (3) Alzheimer's dementia (4) History of hypertension (5) Diabetes mellitus Assessment Hyponatremia, due to SIADH Evidence of UTI Diabetes mellitus Hypertension Alzheimer Dementia Hypothyroidism E/lyte imbalance /hypo Mg, hypo K Plan 3% saline + Lasix + PO KCL Monitor lytes adjust BP meds adjust Thyroid meds urine cultures PO fluid restriction Subjective ROS Limited/Unobtainable: No Constitutional: Reports: weakness Objective Objective Last 24 Hour Vital Signs Date Time Temp Pulse Resp B/P (MAP) Pulse Ox O2 Delivery O2 Flow Rate FiO2 02/03/19 09:37 71 121/57 02/03/19 08:00 97.8 71 18 121/57 (78) 97 02/03/19 08:00 Room Air 02/03/19 05:30 97.6 69 18 129/62 (84) 99 02/03/19 04:00 98.0 65 19 124/51 (75) 96 02/03/19 00:00 98.9 75 18 125/59 (81) 98 02/02/19 21:00 Room Air 02/02/19 20:47 72 127/58 02/02/19 20:00 98.0 72 18 127/58 (81) 97 02/02/19 16:00 97.9 64 18 135/59 (84) 97 Intake and Output 02/02/19 02/03/19 19:00 07:00 Intake Total 650 ml 270 ml Output Total 385 ml Balance 265 ml 270 ml Intake Oral 650 ml 0 ml IV Total 270 ml Output Urine Total 385 ml # Bowel Movements 3 Laboratory Tests 02/03/19 07:11: White Blood Count 5.4, Red Blood Count 3.65L, Hemoglobin 11.7L, Hematocrit 33.3L , Mean Corpuscular Volume 91, Mean Corpuscular Hemoglobin 32.1H, Mean Corpuscular Hemoglobin Concent 35.2, Red Cell Distribution Width 12.1, Platelet Count 250, Mean Platelet Volume 6.1L, Neutrophils (%) (Auto) 53.2, Lymphocytes ( %) (Auto) 28.9, Monocytes (%) (Auto) 12.6H, Eosinophils (%) (Auto) 3.0, Basophils (%) (Auto) 2.3H, Sodium Level 130L, Potassium Level 4.6, Chloride Level 101, Carbon Dioxide Level 24, Anion Gap 5, Blood Urea Nitrogen 11, Creatinine 0.8#, Estimat Glomerular Filtration Rate , Glucose Level 90, Uric Acid 2.3L, Calcium Level 8.4L, Phosphorus Level 3.3, Magnesium Level 1.9, Total Bilirubin 0.6, Aspartate Amino Transf (AST/SGOT) 34, Alanine Aminotransferase ( ALT/SGPT) 30, Alkaline Phosphatase 64, Total Protein 5.9L, Albumin 2.8L, Globulin 3.1, Albumin/Globulin Ratio 0.9L Height (Feet): 5 Height (Inches): 2.00 Weight (Pounds): 118 General Appearance: no apparent distress Objective no change Tho Cobian MD Feb 03, 2019 13:09
[2019-02-03] MEDS ORDERED: Zolpidem 5mg tab ORAL PRN (13:30)
[2019-02-03] MEDS ORDERED: Miralax 17gm pkt ORAL PRN (13:30)
--- NOTE | 2019-02-03 14:05 | Pulmonology Progress Note ---
Assessment/Plan Problems: (1) Hyponatremia (2) Diabetes mellitus (3) Alzheimer's dementia (4) History of hypertension Assessment/Plan Na better, 130 now continue NS sliding scale diabetic diet pt.ot check cortisol level add NaCl tables, according to Uptodate initial dosing is 9 gm a day. will start at lower dose and check Na daily Subjective ROS Limited/Unobtainable: No Constitutional: Reports: no symptoms HEENT: Repors: no symptoms Respiratory: Reports: no symptoms Allergies: Coded Allergies: PENICILLINS (Verified Allergy, Unknown, 01/29/19) Objective Last 24 Hour Vital Signs Date Time Temp Pulse Resp B/P (MAP) Pulse Ox O2 Delivery O2 Flow Rate FiO2 02/03/19 12:00 97.9 65 18 139/60 (86) 98 02/03/19 09:37 71 121/57 02/03/19 08:00 97.8 71 18 121/57 (78) 97 02/03/19 08:00 Room Air 02/03/19 05:30 97.6 69 18 129/62 (84) 99 02/03/19 04:00 98.0 65 19 124/51 (75) 96 02/03/19 00:00 98.9 75 18 125/59 (81) 98 02/02/19 21:00 Room Air 02/02/19 20:47 72 127/58 02/02/19 20:00 98.0 72 18 127/58 (81) 97 02/02/19 16:00 97.9 64 18 135/59 (84) 97 Intake and Output 02/02/19 02/03/19 19:00 07:00 Intake Total 650 ml 270 ml Output Total 385 ml Balance 265 ml 270 ml Intake Oral 650 ml 0 ml IV Total 270 ml Output Urine Total 385 ml # Bowel Movements 3 General Appearance: WD/WN Abdomen: normal bowel sounds, soft, non tender Genitourinary: normal external genitalia Extremities: no clubbing Skin: no rash Microbiology Date/Time Source Procedure Growth Status 02/02/19 15:00 Urine,Clean Catch Urine Culture - Preliminary NO GROWTH Resulted Laboratory Tests 02/03/19 07:11: White Blood Count 5.4, Red Blood Count 3.65L, Hemoglobin 11.7L, Hematocrit 33.3L , Mean Corpuscular Volume 91, Mean Corpuscular Hemoglobin 32.1H, Mean Corpuscular Hemoglobin Concent 35.2, Red Cell Distribution Width 12.1, Platelet Count 250, Mean Platelet Volume 6.1L, Neutrophils (%) (Auto) 53.2, Lymphocytes ( %) (Auto) 28.9, Monocytes (%) (Auto) 12.6H, Eosinophils (%) (Auto) 3.0, Basophils (%) (Auto) 2.3H, Sodium Level 130L, Potassium Level 4.6, Chloride Level 101, Carbon Dioxide Level 24, Anion Gap 5, Blood Urea Nitrogen 11, Creatinine 0.8#, Estimat Glomerular Filtration Rate , Glucose Level 90, Uric Acid 2.3L, Calcium Level 8.4L, Phosphorus Level 3.3, Magnesium Level 1.9, Total Bilirubin 0.6, Aspartate Amino Transf (AST/SGOT) 34, Alanine Aminotransferase ( ALT/SGPT) 30, Alkaline Phosphatase 64, Total Protein 5.9L, Albumin 2.8L, Globulin 3.1, Albumin/Globulin Ratio 0.9L Current Medications Medications (Trade) Dose Ordered Sig/Tien Route PRN Reason Start Time Stop Time Status Last Admin Dose Admin Acetaminophen (Tylenol) 650 mg Q4H PRN ORAL fever 02/03/19 09:30 02/28/19 13:29 Dextrose (Dextrose 50%) 25 ml Q30M PRN IV Hypoglycemia 02/03/19 06:00 02/28/19 13:29 Dextrose (Dextrose 50%) 50 ml Q30M PRN IV Hypoglycemia 02/03/19 06:00 02/28/19 13:29 Docusate Sodium (Colace) 100 mg TWICE A DAY ORAL 02/03/19 09:00 02/28/19 17:59 02/03/19 09:36 Furosemide (Lasix) 20 mg EVERY 12 HOURS IV 02/03/19 21:00 03/04/19 21:59 Heparin Sodium (Porcine) (Heparin 5000 units/ml) 5,000 units EVERY 12 HOURS SUBQ 02/03/19 09:00 02/28/19 20:59 Insulin Aspart (NovoLOG) BEFORE MEALS AND HS SUBQ 02/03/19 06:30 02/28/19 16:29 02/03/19 12:26 Levothyroxine Sodium (Synthroid) 25 mcg DAILY@0630 ORAL 02/03/19 06:30 03/04/19 06:29 Liothyronine Sodium (Cytomel) 5 mcg DAILY ORAL 02/03/19 09:00 03/05/19 08:59 02/03/19 09:37 Lorazepam (Ativan 2mg/ml 1ml) 0.5 mg Q4H PRN IV For Anxiety 02/03/19 06:00 02/05/19 05:59 02/03/19 13:39 Metoprolol Tartrate (Lopressor) 12.5 mg EVERY 12 HOURS ORAL 02/03/19 09:00 02/28/19 20:59 02/03/19 09:37 Morphine Sulfate (Morphine Sulfate) 1 mg Q4H PRN IVP For Pain 02/03/19 06:00 02/05/19 05:59 Ondansetron HCl (Zofran) 4 mg Q6H PRN IVP Nausea & Vomiting 02/03/19 06:00 02/28/19 05:59 Polyethylene Glycol (Miralax) 17 gm HSPRN PRN ORAL Constipation 02/03/19 13:30 02/28/19 13:29 Potassium Chloride (K-Dur) 40 meq TWICE A DAY ORAL 02/03/19 09:00 03/04/19 17:59 02/03/19 09:36 Sodium Chloride 200 ml @ 30 mls/hr ONCE ONCE IV 02/03/19 07:30 02/03/19 14:09 02/03/19 09:48 Zolpidem Tartrate (Ambien) 5 mg HSPRN PRN ORAL Insomnia 02/03/19 13:30 02/05/19 13:29 Joseph Espinoza MD Feb 03, 2019 14:05
[2019-02-03] MEDS: Morphine Sulfate 2mg/ml Inj(IV/IM USE ONLY) IVP PRN (14:44)
--- NOTE | 2019-02-03 16:03 | NUR ---
DISCHARGE PLANNING DISCHARGE ORDER NOTED Patient has been accepted to; [facility] [address] [place] [address] Bed: 234-B Skilled [phone] for Nurse to Nurse report [facility] ETA for transportation: 17:30
--- NOTE | 2019-02-03 17:16 | NUR ---
DISCHARGE PLANNING: NOTE DC ORDERED CANCELLED PER NURSING AMBUL[facility] ON WILL CALL
--- NOTE | 2019-02-03 17:24 | Diagnostic Imaging Report ---
Indication: Low back pain, history of recent trauma Technique: Sagittal T1 and T2 fast spin echo, sagittal STIR, axial T1 and T2 fast spin-echo images of the lumbar spine Comparison: Lumbar spine radiograph of earlier the same day Findings: There is a burst/compression fracture deformity of the L2 vertebral body with slight anterior wedging as well as posterior loss of height and posterior retropulsion of the posterior wall. This results in approximately 40% height loss anteriorly This demonstrates very subtle signal abnormality on the T1 and STIR images. There is a broad-based which demonstrates mild edema on the STIR images. The retropulsion extends approximately 5 mm posterior the posterior wall of the vertebral body. It does not significantly impinge upon the nerve roots or the spinal canal. There is an anterior wedge compression fracture of the T11 vertebral body. This results in 30-40% anterior height loss There is no evidence of associated marrow edema. Cleft extending from the inferior endplate posteriorly The remaining vertebral body heights are preserved. The disc spaces are preserved. There is slight Modic type I degenerative signal abnormality at the superior endplate of S1. The remainder of the vertebral marrow signal is preserved. The L2 fracture results in very slight focal kyphotic deformity. The bony alignment is otherwise unremarkable. The conus medullaris terminates at the L1-2 level. At L3-4, there is mild circumferential annular bulge which does not significantly impinge upon the spinal canal or neural foramina. At L5-S1, there is minimal broad-based posterior disc protrusion, which does not significantly impinge upon the spinal canal or neural foramina. At the remaining levels, no significant disc bulge or protrusion, spinal stenosis, or neural foraminal stenosis. Incidentally noted is a cyst coming off of the interpolar region of the right kidney Impression: L2 vertebral body burst/compression fracture 40, as described, with posterior retropulsion that does not significantly improved upon the spinal canal. Very slight marrow edema noted, indicating fractures probably late subacute. This fracture is probably not a result of the recent trauma as much more marrow edema would be expected if the fracture was that recent. Old T11 vertebral body compression fracture Interval degenerative changes, as described Right renal cyst incidentally noted
--- NOTE | 2019-02-03 19:24 | NUR ---
NURSE NOTES: Received a report from Stacy Hinson RN. Pt is in stable condition. AOX2. On room air. No c/o pain/discomfort. IV site is patent and intact. Bed in lowest position. Bed alarm is on. Call light within reach. Will continue to monitor.
--- NOTE | 2019-02-03 19:24 | NUR ---
HAND-OFF: Report given to Stacy Osborne RN.
--- NOTE | 2019-02-03 20:34 | Internal Med Progress Note ---
Subjective Date of Service: Feb 03, 2019 Physician Name Angelito Richard Attending Physician Eyad Nuñez MD Current Medications Medications (Trade) Dose Ordered Sig/Tien Route PRN Reason Start Time Stop Time Status Last Admin Dose Admin Acetaminophen (Tylenol) 650 mg Q4H PRN ORAL fever 02/03/19 09:30 02/28/19 13:29 Dextrose (Dextrose 50%) 25 ml Q30M PRN IV Hypoglycemia 02/03/19 06:00 02/28/19 13:29 Dextrose (Dextrose 50%) 50 ml Q30M PRN IV Hypoglycemia 02/03/19 06:00 02/28/19 13:29 Docusate Sodium (Colace) 100 mg TWICE A DAY ORAL 02/03/19 09:00 02/28/19 17:59 02/03/19 09:36 Furosemide (Lasix) 20 mg EVERY 12 HOURS IV 02/03/19 21:00 03/04/19 21:59 Heparin Sodium (Porcine) (Heparin 5000 units/ml) 5,000 units EVERY 12 HOURS SUBQ 02/03/19 09:00 02/28/19 20:59 Insulin Aspart (NovoLOG) BEFORE MEALS AND HS SUBQ 02/03/19 06:30 02/28/19 16:29 02/03/19 12:26 Levothyroxine Sodium (Synthroid) 25 mcg DAILY@0630 ORAL 02/03/19 06:30 03/04/19 06:29 Liothyronine Sodium (Cytomel) 5 mcg DAILY ORAL 02/03/19 09:00 03/05/19 08:59 02/03/19 09:37 Lorazepam (Ativan 2mg/ml 1ml) 0.5 mg Q4H PRN IV For Anxiety 02/03/19 06:00 02/05/19 05:59 02/03/19 13:39 Metoprolol Tartrate (Lopressor) 12.5 mg EVERY 12 HOURS ORAL 02/03/19 09:00 02/28/19 20:59 02/03/19 09:37 Morphine Sulfate (Morphine Sulfate) 1 mg Q4H PRN IVP For Pain 02/03/19 06:00 02/05/19 05:59 02/03/19 14:44 Ondansetron HCl (Zofran) 4 mg Q6H PRN IVP Nausea & Vomiting 02/03/19 06:00 02/28/19 05:59 Polyethylene Glycol (Miralax) 17 gm HSPRN PRN ORAL Constipation 02/03/19 13:30 02/28/19 13:29 Potassium Chloride (K-Dur) 40 meq TWICE A DAY ORAL 02/03/19 09:00 03/04/19 17:59 02/03/19 09:36 Zolpidem Tartrate (Ambien) 5 mg HSPRN PRN ORAL Insomnia 02/03/19 13:30 02/05/19 13:29 Allergies: Coded Allergies: PENICILLINS (Verified Allergy, Unknown, 01/29/19) ROS Limited/Unobtainable: Yes Subjective 88 YO F admitted with hyponatremia. Cover for Int Med-Dr Nuñez Objective Last Vital Signs Date Time Temp Pulse Resp B/P (MAP) Pulse Ox O2 Delivery O2 Flow Rate FiO2 02/03/19 20:00 98.0 89 20 119/75 (90) 95 02/03/19 08:00 Room Air Laboratory Tests Test 02/03/19 07:11 White Blood Count 5.4 K/UL (4.8-10.8) Red Blood Count 3.65 M/UL (4.20-5.40) L Hemoglobin 11.7 G/DL (12.0-16.0) L Hematocrit 33.3 % (37.0-47.0) L Mean Corpuscular Volume 91 FL (80-99) Mean Corpuscular Hemoglobin 32.1 PG (27.0-31.0) H Mean Corpuscular Hemoglobin Concent 35.2 G/DL (32.0-36.0) Red Cell Distribution Width 12.1 % (11.6-14.8) Platelet Count 250 K/UL (150-450) Mean Platelet Volume 6.1 FL (6.5-10.1) L Neutrophils (%) (Auto) 53.2 % (45.0-75.0) Lymphocytes (%) (Auto) 28.9 % (20.0-45.0) Monocytes (%) (Auto) 12.6 % (1.0-10.0) H Eosinophils (%) (Auto) 3.0 % (0.0-3.0) Basophils (%) (Auto) 2.3 % (0.0-2.0) H Sodium Level 130 MMOL/L (136-145) L Potassium Level 4.6 MMOL/L (3.5-5.1) Chloride Level 101 MMOL/L (98-107) Carbon Dioxide Level 24 MMOL/L (21-32) Anion Gap 5 mmol/L (5-15) Blood Urea Nitrogen 11 mg/dL (7-18) Creatinine 0.8 MG/DL (0.55-1.30) # Estimat Glomerular Filtration Rate mL/min (>60) Glucose Level 90 MG/DL (74-106) Uric Acid 2.3 MG/DL (2.6-7.2) L Calcium Level 8.4 MG/DL (8.5-10.1) L Phosphorus Level 3.3 MG/DL (2.5-4.9) Magnesium Level 1.9 MG/DL (1.8-2.4) Total Bilirubin 0.6 MG/DL (0.2-1.0) Aspartate Amino Transf (AST/SGOT) 34 U/L (15-37) Alanine Aminotransferase (ALT/SGPT) 30 U/L (12-78) Alkaline Phosphatase 64 U/L (46-116) Total Protein 5.9 G/DL (6.4-8.2) L Albumin 2.8 G/DL (3.4-5.0) L Globulin 3.1 g/dL Albumin/Globulin Ratio 0.9 (1.0-2.7) L Microbiology Date/Time Source Procedure Growth Status 02/02/19 15:00 Urine,Clean Catch Urine Culture - Preliminary NO GROWTH Resulted Intake and Output 02/02/19 02/03/19 19:00 07:00 Intake Total 650 ml 270 ml Output Total 385 ml Balance 265 ml 270 ml Intake Oral 650 ml 0 ml IV Total 270 ml Output Urine Total 385 ml # Bowel Movements 3 Objective PHYSICAL EXAMINATION: GENERAL: The patient is well-developed and well-nourished thin-appearing female, in no apparent distress. HEENT: Eyes, pupils are equal and responsive to light and accommodation. Extraocular movements are intact. NECK: Supple without lymphadenopathy. CHEST: Lungs are clear to auscultation bilaterally without wheezes or rales. CARDIOVASCULAR: Regular rhythm and rate. S1 and S2 are normal without murmurs, rubs, or gallops. ABDOMEN: Soft, nontender, and nondistended. Positive bowel sounds. No evidence of hepatosplenomegaly. Currently, no rebound or guarding noted. EXTREMITIES: Negative for clubbing, cyanosis, or edema. RECTAL/GENITAL: Not performed. NEUROLOGIC: Cranial nerves II through XII are grossly intact without focal deficits. Motor strength is 5/5 bilaterally. Deep tendon reflexes are 2+ plantar. Assessment/Plan Assessment/Plan ASSESSMENT: This is an 88-year-old female. 1. Hyponatremia. 2. Diabetes type 2. 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 4. Hypercholesterolemia. 5. Hypertension. 6. Alzheimer's dementia. 7. Gastroesophageal reflux disease. 8. Hypothyroidism TREATMENT: 1. Hyponatremia. SIADH. The patient is currently receiving intravenous fluids with normal saline. Sodium will be slowly corrected. A Nephrology consultation has been obtained with Dr. Cobian. We will follow recommendations of Nephrology. 2. Diabetes. The patient was not on insulin [facility] the [facility]. Continue novolog sliding scale 3. Hypercholesterolemia. Continue atorvastatin as above. 4. Hypertension. Continue metoprolol and valsartan as above. 5. Alzheimer's dementia. 6. Gastroesophageal reflux disease. Continue Protonix as above. 7. Cont levoxyl Angelito Richard MD Feb 03, 2019 20:34
[2019-02-04] VITALS: BP 132/62
[2019-02-04] MEDS: Morphine Sulfate 2mg/ml Inj(IV/IM USE ONLY) IVP PRN ×2 (00:28→09:36)
[2019-02-04 04:00] VITALS: BP 131/63
[2019-02-04] MEDS: NovoLOG Insulin Flexpen SUBQ SCH ×3 (05:35→17:24)
[2019-02-04] MEDS: Levothyroxine 25mcg tab ORAL SCH (05:35)
[2019-02-04 06:19] LABS: BASOPHILS % (AUTO) 1.1 % (0.0-2.0); EOSINOPHILS % (AUTO) 1.1 % (0.0-3.0); HEMATOCRIT 37.3 % (37.0-47.0); HEMOGLOBIN 13.3 G/DL (12.0-16.0); LYMPHOCYTES % (AUTO) 10.2 % (20.0-45.0); MEAN CORPUSCULAR VOLUME 91 FL (80-99); MONOCYTES % (AUTO) 8.2 % (1.0-10.0); NEUTROPHILS % (AUTO) 79.4 % (45.0-75.0); PLATELET COUNT 246 K/UL (150-450); RED CELL DISTRIBUTION WIDTH 11.8 % (11.6-14.8); WHITE BLOOD COUNT 9.5 K/UL (4.8-10.8)
[2019-02-04 06:47] LABS: ALANINE AMINOTRANSFERASE 47 U/L (12-78); ALBUMIN 3.1 G/DL (3.4-5.0); ALBUMIN/GLOBULIN RATIO 0.8 (1.0-2.7); ALKALINE PHOSPHATASE 76 U/L (46-116); ANION GAP 8 mmol/L (5-15); ASPARTATE AMINO TRANSFERASE 43 U/L (15-37); BILIRUBIN,TOTAL 0.9 MG/DL (0.2-1.0); BLOOD UREA NITROGEN 17 mg/dL (7-18); CALCIUM 8.7 MG/DL (8.5-10.1); CARBON DIOXIDE 26 MMOL/L (21-32); CHLORIDE 99 MMOL/L (98-107); CREATININE 0.8 MG/DL (0.55-1.30); PHOSPHORUS 4.3 MG/DL (2.5-4.9); POTASSIUM 4.3 MMOL/L (3.5-5.1); SODIUM 133 MMOL/L (136-145)
--- NOTE | 2019-02-04 07:00 | NUR ---
HAND-OFF: Report given to Gómez Moreno RN.
--- NOTE | 2019-02-04 07:26 | NUR ---
NURSE NOTES: PT AXOX2, CALM, POSITIONED TO SITTING POSITION TO EAT BREAKFAST. IN NO APPARENT DISTRESS AT THIS TIME. BED ALARM ON, ZONE 2. BED IN LOWEST POSITION WITH BEDSIDE RAILS X2 RAISED. COMMODE AT BEDSIDE. CALL LIGHT WITHIN REACH. WILL CONTINUE TO MONITOR.
[2019-02-04 08:00] VITALS: BP 106/68
[2019-02-04] MEDS: Liothyronine 5mcg tab ORAL SCH (08:48)
[2019-02-04] MEDS: Docusate 100mg cap ORAL SCH ×2 (08:48→17:38)
[2019-02-04] MEDS: Metoprolol Tartrate 12.5mg TAB ORAL SCH (09:00)
[2019-02-04] MEDS: Heparin 5000 units/ml inj SUBQ SCH (09:07)
--- NOTE | 2019-02-04 10:09 | NUR ---
NURSE NOTES: PT WENT TO BEDSIDE COMMODE WITH [facility] (2 STAFF). PT STATES PAIN OF LEFT HIP. RN ADMINISTERED PRN MORPHINE 1MG IVP ORDERED. PT NOW CALM AND ASLEEP IN BED. PT HAD FALL YESTERDAY WITH MRI L-SPINE DONE. RN MADE DR TRUJILLO AWARE OF MRI RESULTS AND RECOMMENDED PHYSICAL THERAPY EVAL. AWAITING NEW ORDERS. BED IN LOWEST POSITION WITH BEDSIDE RAILS X3 RAISED. BED ALARM ON ZONE 2. FALL RISK BRACELET AND YELLOW NON-SKID SOCKS ON. WILL CONTINUE TO MONITOR.
--- NOTE | 2019-02-04 10:35 | NUR ---
NURSE NOTES: DR TRUJILLO DOES NOT WANT ORDER FOR PHYSICAL THERAPY.
[2019-02-04] MEDS ORDERED: HYDROcodone/Acetamin 10/325 tab ORAL PRN (10:45)
--- NOTE | 2019-02-04 11:43 | Nephrology Progress Note ---
Assessment/Plan Problem List: (1) Hyponatremia (2) UTI (urinary tract infection) (3) Alzheimer's dementia (4) History of hypertension (5) Diabetes mellitus Assessment Hyponatremia, due to SIADH Evidence of UTI Diabetes mellitus Hypertension Alzheimer Dementia Hypothyroidism E/lyte imbalance /hypo Mg, hypo K Plan previously tried: 3% saline + Lasix + PO KCL Monitor lytes adjust BP meds adjust Thyroid meds urine cultures PO fluid restriction ? DC planning Subjective ROS Limited/Unobtainable: No Constitutional: Reports: malaise Objective Objective Last 24 Hour Vital Signs Date Time Temp Pulse Resp B/P (MAP) Pulse Ox O2 Delivery O2 Flow Rate FiO2 02/04/19 09:00 Room Air 02/04/19 09:00 88 106/68 02/04/19 08:00 97.9 88 16 106/68 (81) 96 02/04/19 04:00 98.7 80 16 131/63 (85) 94 02/04/19 00:00 97.9 91 16 132/62 (85) 97 02/03/19 21:00 Room Air 02/03/19 20:34 89 119/75 02/03/19 20:00 98.0 89 20 119/75 (90) 95 02/03/19 16:00 98.7 81 18 146/70 (95) 94 02/03/19 12:00 97.9 65 18 139/60 (86) 98 Intake and Output 02/03/19 02/04/19 19:00 07:00 Intake Total 300 ml Balance 300 ml Intake Oral 300 ml # Voids 3 2 Laboratory Tests 02/04/19 04:50: White Blood Count 9.5#, Red Blood Count 4.10L, Hemoglobin 13.3, Hematocrit 37.3 , Mean Corpuscular Volume 91, Mean Corpuscular Hemoglobin 32.5H, Mean Corpuscular Hemoglobin Concent 35.7, Red Cell Distribution Width 11.8, Platelet Count 246, Mean Platelet Volume 5.2L, Neutrophils (%) (Auto) 79.4H, Lymphocytes (%) (Auto) 10.2L, Monocytes (%) (Auto) 8.2, Eosinophils (%) (Auto) 1.1, Basophils (%) (Auto) 1.1, Sodium Level 133L, Potassium Level 4.3, Chloride Level 99, Carbon Dioxide Level 26, Anion Gap 8, Blood Urea Nitrogen 17, Creatinine 0.8, Estimat Glomerular Filtration Rate , Glucose Level 101, Uric Acid 3.5, Calcium Level 8.7, Phosphorus Level 4.3, Magnesium Level 1.7L, Total Bilirubin 0.9, Aspartate Amino Transf (AST/SGOT) 43H, Alanine Aminotransferase ( ALT/SGPT) 47, Alkaline Phosphatase 76, C-Reactive Protein, Quantitative 3.9H, Pro-B-Type Natriuretic Peptide 993H, Total Protein 6.8, Albumin 3.1L, Globulin 3.7, Albumin/Globulin Ratio 0.8L Height (Feet): 5 Height (Inches): 2.00 Weight (Pounds): 118 General Appearance: no apparent distress Objective no change Tho Cobian MD Feb 04, 2019 11:43
[2019-02-04 12:00] VITALS: BP 112/54
[2019-02-04] MEDS ORDERED: CYTOMEL5 MCG ORAL (13:24)
[2019-02-04] MEDS ORDERED: LIDODERM700 M1 TOPIC (13:24)
[2019-02-04] MEDS ORDERED: SYNTHROID25 MCG ORAL (13:26)
--- NOTE | 2019-02-04 13:27 | Pulmonology Progress Note ---
Assessment/Plan Problems: (1) Hyponatremia (2) Diabetes mellitus (3) Alzheimer's dementia (4) History of hypertension (5) Acute back pain (6) Hypothyroidism Assessment/Plan Na better, continue NS sliding scale diabetic diet pt.ot lidocain patch Subjective ROS Limited/Unobtainable: No Constitutional: Reports: no symptoms HEENT: Repors: no symptoms Respiratory: Reports: no symptoms Allergies: Coded Allergies: PENICILLINS (Verified Allergy, Unknown, 01/29/19) Objective Last 24 Hour Vital Signs Date Time Temp Pulse Resp B/P (MAP) Pulse Ox O2 Delivery O2 Flow Rate FiO2 02/04/19 12:00 97.6 18 112/54 (73) 95 02/04/19 09:00 Room Air 02/04/19 09:00 88 106/68 02/04/19 08:00 97.9 88 16 106/68 (81) 96 02/04/19 04:00 98.7 80 16 131/63 (85) 94 02/04/19 00:00 97.9 91 16 132/62 (85) 97 02/03/19 21:00 Room Air 02/03/19 20:34 89 119/75 02/03/19 20:00 98.0 89 20 119/75 (90) 95 02/03/19 16:00 98.7 81 18 146/70 (95) 94 Intake and Output 02/03/19 02/04/19 19:00 07:00 Intake Total 300 ml Balance 300 ml Intake Oral 300 ml # Voids 3 2 General Appearance: WD/WN HEENT: normocephalic, mucous membranes moist Respiratory/Chest: chest wall non-tender, normal breath sounds Breasts: no masses Cardiovascular: no gallop/murmur Abdomen: soft, non tender, no mass Extremities: no cyanosis Skin: no rash Microbiology Date/Time Source Procedure Growth Status 02/02/19 15:00 Urine,Clean Catch Urine Culture - Preliminary Gram Negative Tate Mixed Gram Positive Organism Resulted Laboratory Tests 02/04/19 04:50: White Blood Count 9.5#, Red Blood Count 4.10L, Hemoglobin 13.3, Hematocrit 37.3 , Mean Corpuscular Volume 91, Mean Corpuscular Hemoglobin 32.5H, Mean Corpuscular Hemoglobin Concent 35.7, Red Cell Distribution Width 11.8, Platelet Count 246, Mean Platelet Volume 5.2L, Neutrophils (%) (Auto) 79.4H, Lymphocytes (%) (Auto) 10.2L, Monocytes (%) (Auto) 8.2, Eosinophils (%) (Auto) 1.1, Basophils (%) (Auto) 1.1, Sodium Level 133L, Potassium Level 4.3, Chloride Level 99, Carbon Dioxide Level 26, Anion Gap 8, Blood Urea Nitrogen 17, Creatinine 0.8, Estimat Glomerular Filtration Rate , Glucose Level 101, Uric Acid 3.5, Calcium Level 8.7, Phosphorus Level 4.3, Magnesium Level 1.7L, Total Bilirubin 0.9, Aspartate Amino Transf (AST/SGOT) 43H, Alanine Aminotransferase ( ALT/SGPT) 47, Alkaline Phosphatase 76, C-Reactive Protein, Quantitative 3.9H, Pro-B-Type Natriuretic Peptide 993H, Total Protein 6.8, Albumin 3.1L, Globulin 3.7, Albumin/Globulin Ratio 0.8L Current Medications Medications (Trade) Dose Ordered Sig/Tien Route PRN Reason Start Time Stop Time Status Last Admin Dose Admin Acetaminophen (Tylenol) 650 mg Q4H PRN ORAL fever 02/03/19 09:30 02/28/19 13:29 Acetaminophen/ Hydrocodone Bitart ([place] 10/325) 1 tab Q6H PRN ORAL Moderate Pain (Pain Scale 4-6) 02/04/19 10:45 02/11/19 10:44 Dextrose (Dextrose 50%) 25 ml Q30M PRN IV Hypoglycemia 02/03/19 06:00 02/28/19 13:29 Dextrose (Dextrose 50%) 50 ml Q30M PRN IV Hypoglycemia 02/03/19 06:00 02/28/19 13:29 Docusate Sodium (Colace) 100 mg TWICE A DAY ORAL 02/03/19 09:00 02/28/19 17:59 02/04/19 08:48 Heparin Sodium (Porcine) (Heparin 5000 units/ml) 5,000 units EVERY 12 HOURS SUBQ 02/03/19 09:00 02/28/19 20:59 02/04/19 09:07 Insulin Aspart (NovoLOG) BEFORE MEALS AND HS SUBQ 02/03/19 06:30 02/28/19 16:29 02/03/19 12:26 Levothyroxine Sodium (Synthroid) 25 mcg DAILY@0630 ORAL 02/03/19 06:30 03/04/19 06:29 Liothyronine Sodium (Cytomel) 5 mcg DAILY ORAL 02/03/19 09:00 03/05/19 08:59 02/04/19 08:48 Lorazepam (Ativan 2mg/ml 1ml) 0.5 mg Q4H PRN IV For Anxiety 02/03/19 06:00 02/05/19 05:59 02/03/19 13:39 Metoprolol Tartrate (Lopressor) 12.5 mg EVERY 12 HOURS ORAL 02/03/19 09:00 02/28/19 20:59 02/03/19 20:34 Morphine Sulfate (Morphine Sulfate) 1 mg Q4H PRN IVP Severe Pain (Pain Scale 7-10) 02/04/19 14:00 02/05/19 05:59 Ondansetron HCl (Zofran) 4 mg Q6H PRN IVP Nausea & Vomiting 02/03/19 06:00 02/28/19 05:59 Polyethylene Glycol (Miralax) 17 gm HSPRN PRN ORAL Constipation 02/03/19 13:30 02/28/19 13:29 Zolpidem Tartrate (Ambien) 5 mg HSPRN PRN ORAL Insomnia 02/03/19 13:30 02/05/19 13:29 Joseph Espinoza MD Feb 04, 2019 13:27
--- NOTE | 2019-02-04 13:38 | NUR ---
NURSE NOTES: ORDER FOR DISCAHRGE NOTED. RN SPOKE TO SUMEET (SON) AND MADE AWARE OF DISCHARGE. RN ARRANGED [facility] FOR [facility]DS COACH ETA 1500 HRS. RN ATTEMPTED TO GIVE REPORT TO [facility]. PER CHARMAINE, SHE IS ON LUNCH BREAK AND WILL CALL RN BACK. CRN MADE AWARE.
[2019-02-04] MEDS ORDERED: Morphine Sulfate 2mg/ml Inj(IV/IM USE ONLY) IVP PRN (14:00)
--- NOTE | 2019-02-04 14:28 | NUR ---
NURSE NOTES: RN GAVE REPORT TO CHARMAINE AT [facility] AND MADE AWARE PT WILL BE STARTING NEW MED, SODIUM CHLORIDE TABLETS THREE TIMES A DAY FOR LOW SODIUM LEVEL. BELONGINGS CHECKED AT BEDSIDE AND ALL BELONGINGS ACCOUNTED.
[2019-02-04 16:00] VITALS: BP 91/51
--- NOTE | 2019-02-04 16:35 | NUR ---
NURSE NOTES: RN SPOKE TO [facility], THERE IS DELAY AND NEW ETA 1730HRS.
[2019-02-04] MEDS ORDERED: NS 275ml ONE (17:22)
[2019-02-04] MEDS ORDERED: Tubing IV Secondary IV ONE (17:22)
--- NOTE | 2019-02-04 17:24 | Internal Med Progress Note ---
Subjective Date of Service: Feb 04, 2019 Physician Name Angelito Richard Attending Physician Eyad Nuñez MD Current Medications Medications (Trade) Dose Ordered Sig/Tien Route PRN Reason Start Time Stop Time Status Last Admin Dose Admin Acetaminophen (Tylenol) 650 mg Q4H PRN ORAL fever 02/03/19 09:30 02/28/19 13:29 Acetaminophen/ Hydrocodone Bitart (Squire 10/325) 1 tab Q6H PRN ORAL Moderate Pain (Pain Scale 4-6) 02/04/19 10:45 02/11/19 10:44 Dextrose (Dextrose 50%) 25 ml Q30M PRN IV Hypoglycemia 02/03/19 06:00 02/28/19 13:29 Dextrose (Dextrose 50%) 50 ml Q30M PRN IV Hypoglycemia 02/03/19 06:00 02/28/19 13:29 Docusate Sodium (Colace) 100 mg TWICE A DAY ORAL 02/03/19 09:00 02/28/19 17:59 02/04/19 08:48 Heparin Sodium (Porcine) (Heparin 5000 units/ml) 5,000 units EVERY 12 HOURS SUBQ 02/03/19 09:00 02/28/19 20:59 02/04/19 09:07 Insulin Aspart (NovoLOG) BEFORE MEALS AND HS SUBQ 02/03/19 06:30 02/28/19 16:29 02/03/19 12:26 Levothyroxine Sodium (Synthroid) 25 mcg DAILY@0630 ORAL 02/03/19 06:30 03/04/19 06:29 Liothyronine Sodium (Cytomel) 5 mcg DAILY ORAL 02/03/19 09:00 03/05/19 08:59 02/04/19 08:48 Lorazepam (Ativan 2mg/ml 1ml) 0.5 mg Q4H PRN IV For Anxiety 02/03/19 06:00 02/05/19 05:59 02/03/19 13:39 Metoprolol Tartrate (Lopressor) 12.5 mg EVERY 12 HOURS ORAL 02/03/19 09:00 02/28/19 20:59 02/03/19 20:34 Morphine Sulfate (Morphine Sulfate) 1 mg Q4H PRN IVP Severe Pain (Pain Scale 7-10) 02/04/19 14:00 02/05/19 05:59 Ondansetron HCl (Zofran) 4 mg Q6H PRN IVP Nausea & Vomiting 02/03/19 06:00 02/28/19 05:59 Polyethylene Glycol (Miralax) 17 gm HSPRN PRN ORAL Constipation 02/03/19 13:30 02/28/19 13:29 Zolpidem Tartrate (Ambien) 5 mg HSPRN PRN ORAL Insomnia 02/03/19 13:30 02/05/19 13:29 Allergies: Coded Allergies: PENICILLINS (Verified Allergy, Unknown, 01/29/19) ROS Limited/Unobtainable: Yes Subjective 88 YO F admitted with hyponatremia. Cover for Int Med-Dr Nuñez Objective Last Vital Signs Date Time Temp Pulse Resp B/P (MAP) Pulse Ox O2 Delivery O2 Flow Rate FiO2 02/04/19 12:00 97.6 18 112/54 (73) 95 02/04/19 09:00 Room Air 02/04/19 09:00 88 Laboratory Tests Test 02/04/19 04:50 White Blood Count 9.5 K/UL (4.8-10.8) # Red Blood Count 4.10 M/UL (4.20-5.40) L Hemoglobin 13.3 G/DL (12.0-16.0) Hematocrit 37.3 % (37.0-47.0) Mean Corpuscular Volume 91 FL (80-99) Mean Corpuscular Hemoglobin 32.5 PG (27.0-31.0) H Mean Corpuscular Hemoglobin Concent 35.7 G/DL (32.0-36.0) Red Cell Distribution Width 11.8 % (11.6-14.8) Platelet Count 246 K/UL (150-450) Mean Platelet Volume 5.2 FL (6.5-10.1) L Neutrophils (%) (Auto) 79.4 % (45.0-75.0) H Lymphocytes (%) (Auto) 10.2 % (20.0-45.0) L Monocytes (%) (Auto) 8.2 % (1.0-10.0) Eosinophils (%) (Auto) 1.1 % (0.0-3.0) Basophils (%) (Auto) 1.1 % (0.0-2.0) Sodium Level 133 MMOL/L (136-145) L Potassium Level 4.3 MMOL/L (3.5-5.1) Chloride Level 99 MMOL/L (98-107) Carbon Dioxide Level 26 MMOL/L (21-32) Anion Gap 8 mmol/L (5-15) Blood Urea Nitrogen 17 mg/dL (7-18) Creatinine 0.8 MG/DL (0.55-1.30) Estimat Glomerular Filtration Rate mL/min (>60) Glucose Level 101 MG/DL (74-106) Uric Acid 3.5 MG/DL (2.6-7.2) Calcium Level 8.7 MG/DL (8.5-10.1) Phosphorus Level 4.3 MG/DL (2.5-4.9) Magnesium Level 1.7 MG/DL (1.8-2.4) L Total Bilirubin 0.9 MG/DL (0.2-1.0) Aspartate Amino Transf (AST/SGOT) 43 U/L (15-37) H Alanine Aminotransferase (ALT/SGPT) 47 U/L (12-78) Alkaline Phosphatase 76 U/L (46-116) C-Reactive Protein, Quantitative 3.9 mg/dL (0.00-0.90) H Pro-B-Type Natriuretic Peptide 993 pg/mL (0-125) H Total Protein 6.8 G/DL (6.4-8.2) Albumin 3.1 G/DL (3.4-5.0) L Globulin 3.7 g/dL Albumin/Globulin Ratio 0.8 (1.0-2.7) L Microbiology Date/Time Source Procedure Growth Status 02/02/19 15:00 Urine,Clean Catch Urine Culture - Preliminary Gram Negative Tate Mixed Gram Positive Organism Resulted Intake and Output 02/03/19 02/04/19 19:00 07:00 Intake Total 300 ml Balance 300 ml Intake Oral 300 ml # Voids 3 2 Objective PHYSICAL EXAMINATION: GENERAL: The patient is well-developed and well-nourished thin-appearing female, in no apparent distress. HEENT: Eyes, pupils are equal and responsive to light and accommodation. Extraocular movements are intact. NECK: Supple without lymphadenopathy. CHEST: Lungs are clear to auscultation bilaterally without wheezes or rales. CARDIOVASCULAR: Regular rhythm and rate. S1 and S2 are normal without murmurs, rubs, or gallops. ABDOMEN: Soft, nontender, and nondistended. Positive bowel sounds. No evidence of hepatosplenomegaly. Currently, no rebound or guarding noted. EXTREMITIES: Negative for clubbing, cyanosis, or edema. RECTAL/GENITAL: Not performed. NEUROLOGIC: Cranial nerves II through XII are grossly intact without focal deficits. Motor strength is 5/5 bilaterally. Deep tendon reflexes are 2+ plantar. Assessment/Plan Assessment/Plan ASSESSMENT: This is an 88-year-old female. 1. Hyponatremia. 2. Diabetes type 2. 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 4. Hypercholesterolemia. 5. Hypertension. 6. Alzheimer's dementia. 7. Gastroesophageal reflux disease. 8. Hypothyroidism TREATMENT: 1. Hyponatremia. SIADH. The patient is currently receiving intravenous fluids with normal saline. Sodium will be slowly corrected. A Nephrology consultation has been obtained with Dr. Cobian. We will follow recommendations of Nephrology. 2. Diabetes. The patient was not on insulin in the [facility] facility. Continue novolog sliding scale 3. Hypercholesterolemia. Continue atorvastatin as above. 4. Hypertension. Continue metoprolol and valsartan as above. 5. Alzheimer's dementia. 6. Gastroesophageal reflux disease. Continue Protonix as above. 7. Cont levoxyl Angelito Richard MD Feb 04, 2019 17:24
--- NOTE | 2019-02-04 18:12 | NUR ---
NURSE NOTES: PT WAS DISCHARGED WITH [facility]. BELONGINGS AND HOME MEDICATIONS GIVEN TO AMBULANCE PERSONNEL. IV ACCESS DISCONTINUED. PT WAS DISCHARGED IN STABLE CONDITION.
--- NOTE | 2019-02-05 09:57 | Discharge Summary ---
Discharge Summary Discharge Summary _ DATE OF ADMISSION: 01/29/2019 DATE OF DISCHARGE: 02/04/2019 DISCHARGED BY: Dr. Nuñez REASON FOR ADMISSION: 88 years old female with past medical history of diabetes mellitus, GERD, dementia, hyperlipidemia, presented to emergency room from the [facility] for evaluation . Patient was sent for abnormal labs. Patient had reportedly low sodium and frequent urination. No reported fever or chills. No nausea or vomiting. No diarrhea. Upon evaluation vital signs were stable. Laboratory work-up revealed sodium 121, potassium 4.2. BUN 21, creatinine 0.7. Glucose 148. Lactic acid 1.1. Stable LFT. Albumin 3.2. Pro BNP 787. No leukocytosis, hemoglobin 12.8, hematocrit 34.5. Platelet count 260. Urinalysis revealed +2 leukocyte esterase , pyuria and few bacteria. Chest x-ray demonstrated no acute cardiopulmonary pathology. Patient admitted for UTI and hyponatremia. CONSULTANTS: hospitalist Dr. Espinoza docketing specialist Dr. Cobian [facility] COURSE: Patient initially admitted to telemetry floor and started on IV fluids with normal saline. Work-up for hyponatremia initiated. Sodium did not show much improvement with IV sodium. At this time urine studies came back and were consistent with probable SIADH. Patient received 3% saline and started on fluid restriction . Patient additionally was given Lasix and potassium. Sharepoint Developer closely followed. Cortisol level was stable. No evidence of adrenal insufficiency. Patient started on levothyroxine with evidence of high TSH and low free T3. Renal parameters and electrolytes were closely monitored. Potassium and magnesium replaced. Blood pressure was managed with beta-d[place]ota. Blood sugar was managed with sliding scale of insulin. DVT prophylaxis provided. Pain management was addressed as needed. Bowel regimen instituted. Blood cultures were negative. Urine culture revealed mixed gram-positive organisms. Repeated urine culture revealed Acinetobacter 10-20K, and mixed gram positive organisms. Patient clinically stabilized and was ready for discharge to [facility] facility. Upon discharge sodium 133, potassium and magnesium stable. FINAL DIAGNOSES: Hyponatremia due to SIADH Hypothyroidism Electrolyte imbalance/hypomagnesemia, hypokalemia Diabetes mellitus Hypertension Alzheimer dementia Hypercholesterolemia Degenerative disc disease of lumbar spine GERD DISCHARGE MEDICATIONS: See Medication Reconciliation list. DISCHARGE INSTRUCTIONS: Patient was discharged to the [facility] facility. Follow up with medical doctor at the facility. Aide Rodriges NP Feb 05, 2019 09:57
== END 2019-02-04 18:11 | DRG 644 ==
LOC: EDBD 11:41 → EMR 12:00 → 2E 12:45 → EDBEDREQ 13:30 → 2E 14:23 → 4E 02-03 05:16
DX: E22.2 Syndrome of inappropriate secretion of antidiuretic hormone (principal); N39.0 Urinary tract infection, site not specified; Z88.0 Allergy status to penicillin; E11.9 Type 2 diabetes mellitus without complications; E78.00 Pure hypercholesterolemia, unspecified; G30.9 Alzheimer's disease, unspecified; F02.80 Dementia in other diseases classified elsewhere, unspecified severity, without behavioral disturbance, psychotic disturbance, mood disturbance, and anxiety; K21.9 Gastro-esophageal reflux disease without esophagitis; E03.9 Hypothyroidism, unspecified; Z79.82 Long term (current) use of aspirin; M51.36 Other intervertebral disc degeneration, lumbar region; E83.42 Hypomagnesemia; E87.6 Hypokalemia
CPT/HCPCS: 36415; 70450; 71045; 72020; 72148; 80048; 80053; 80061; 80076; 81001; 81003; 82533; 82962; 83605; 83735; 83880; 83930; 83935; 84100; 84300; 84439; 84443; 84481; 84550; 85025; 86140; 87040; 87081; 87086; 93005; 96361; 96365; 99285; J1815; J8499